=== PATIENT | female | born 1990 | race Caucasian/White ===

== ENCOUNTER 2018-03-03 19:20 | Inpatient (IN) ==
[2018-03-03 21:17] LABS: Basophils % 0.3 %; Eosinophils # 0.1 K/mcL (0.0-0.6); Eosinophils % 0.7 %; Lymphocytes # 1.7 K/mcL (0.6-4.6); Lymphocytes % 14.3 %; Mean Corpuscular HGB Conc 36.4 g/dL (31.6-35.5); Mean Corpuscular Hemoglobin 31.5 pg (28.0-33.3); Mean Corpuscular Volume 86.6 fL (83.0-100.0); Mean Platelet Volume 10.9 fL (9.4-12.4); Monocytes # 0.6 K/mcL (0.0-1.3); Monocytes % 4.7 %; Neutrophils # 9.3 K/mcL (1.6-8.9); Platelet Count 205 K/mcL (140-400); Red Blood Count 3.81 M/mcL (3.82-4.97)
[2018-03-03 21:34] LABS: Acetaminophen < 10 mcg/mL (10-20); BUN/Creatinine Ratio 27 (6-26); Blood Urea Nitrogen 18 mg/dL (6-20); Carbon Dioxide 21 mEq/L (23-29); Chloride 105 mEq/L (98-107); Ethanol < 10 mg/dL (Less than 10); Glucose 83 mg/dL (70-105); Osmolality,Calculated 287 (280-300); Potassium 3.4 mEq/L (3.5-5.1); Salicylate < 2.5 mg/dL (15.0-30.0); Sodium 138 mEq/L (136-145); eGFR For Non-African Americans > 60 (> 60)
[2018-03-03 21:44] LABS: Bilirubin,Urine Small (Negative); Blood,Urine Small (Negative); Clarity,Urine Clear (Clear); Color,Urine Yellow (Yellow); Glucose,Urine (UA) Normal (Normal); Ketones,Urine >=160 mg/dL (Negative); Leukocyte Esterase,Urine Negative (Negative); Nitrite,Urine Negative (Negative); Protein,Urine 100 mg/dL (Neg-Trace); Specific Gravity,Urine 1.024 (1.010-1.025); Urobilinogen,Urine Normal (Normal)
[2018-03-03 21:46] LABS: Bacteria,Urine None Seen per hpf (None-Few); Hyaline Casts,Urine None Seen per lpf (None-Few); RBC,Urine 0-3 per hpf (0-3); Squamous Epithelial Cell,Urine Many per lpf (None-Few)
[2018-03-03 22:02] LABS: Amphetamine Screen,Urine Negative ng/mL (Cutoff=1000); Barbiturate Screen,Urine Negative ng/mL (Cutoff=200); Benzodiazepines Screen,Urine Positive ng/mL (Cutoff=200); Cannabinoid Screen,Urine Negative ng/mL (Cutoff = 50); Cocaine Screen,Urine Negative ng/mL (Cutoff= 300); Opiate Screen,Urine Negative ng/mL (Cutoff=300); Phencyclidine Screen,Urine Negative ng/mL (Cutoff=25)
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
[2018-03-04] MEDS ORDERED: Ondansetron 4 MG/2 ML VIAL IVP ONE (00:02)
[2018-03-04] MEDS: Ringers Solution, Lactated 1,000 ML IVC SCH ×2 (00:35→20:42)
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
[2018-03-04] MEDS: Potassium Chloride Elixir 20 MEQ/15 ML UDC PO ONE ×2 (03:07→03:29)
[2018-03-04] MEDS: *HR* Heparin 5,000 UNIT/ML VIAL SQ SCH ×3 (06:02→20:45)
[2018-03-04 07:37] LABS: Alanine Aminotransferase 16 Units/L (7-52); Albumin/Globulin Ratio 1.4 (1.1-2.2); Alkaline Phosphatase 68 Units/L (34-104); Aspartate Amino Transferase 21 Units/L (13-39); BUN/Creatinine Ratio 22 (6-26); Bilirubin,Direct 0.1 mg/dL (0.0-0.2); Bilirubin,Indirect 0.3 mg/dL (0.0-1.2); Bilirubin,Total 0.4 mg/dL (0.3-1.0); Blood Urea Nitrogen 15 mg/dL (6-20); Calcium 9.3 mg/dL (8.6-10.3); Carbon Dioxide 25 mEq/L (23-29); Chloride 106 mEq/L (98-107); Globulin 2.9 g/dL (2.4-3.5); Glucose 162 mg/dL (70-105); Osmolality,Calculated 294 (280-300); Sodium 140 mEq/L (136-145); Total Protein 6.9 g/dL (6.4-8.9); eGFR For Non-African Americans > 60 (> 60)
[2018-03-04 07:49] LABS: Thyroid Stimulating Hormone 0.529 mcIU/mL (0.340-5.600)
[2018-03-04 07:52] LABS: Basophils # 0.1 K/mcL (0.0-0.2); Basophils % 0.5 %; Eosinophils # 0.1 K/mcL (0.0-0.6); Eosinophils % 1.1 %; Hematocrit 35.3 % (35.3-44.9); Hemoglobin 12.7 g/dL (11.5-15.4); Immature Granulocytes % 1.9 % (0-4); Lymphocytes # 1.8 K/mcL (0.6-4.6); Lymphocytes % 14.4 %; Mean Corpuscular Hemoglobin 31.4 pg (28.0-33.3); Mean Corpuscular Volume 87.2 fL (83.0-100.0); Mean Platelet Volume 10.5 fL (9.4-12.4); Monocytes # 0.6 K/mcL (0.0-1.3); Monocytes % 5.2 %; Neutrophils # 9.4 K/mcL (1.6-8.9); Platelet Count 250 K/mcL (140-400); Red Blood Count 4.05 M/mcL (3.82-4.97); Red Cell Distribution Width 11.9 % (11.5-14.5); Segmented Neutrophils % 76.9 %
[2018-03-04 08:45] LABS: Hepatitis B Surface Antigen Nonreactive (Nonreactive)
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
[2018-03-04] MEDS: Ondansetron 4 MG/2 ML VIAL IVP PRN ×2 (11:37→18:56)
[2018-03-04] MEDS ORDERED: *HR* LORazepam 2 MG/ML VIAL IVP ONE (15:19)
[2018-03-04] MEDS ORDERED: Ammonia Inhalant AMPUL IH ONE (16:09)
--- NOTE | 2018-03-04 16:13 | Event Note ---
Date of Encounter: 03/04/18 Time of Encounter: 16:01 Patient was seen and examined at bedside currently patient is nonverbal she does follow with her eyes and does follow simple commands. I did review documents sent from [facility] during admission-according to records it appears the patient was experiencing seizure-like activity and was intubated and brought to [facility] there was some concern seizure may have been provoked either by hypernatremia sodium level was 155 or possibly from drug-induced. It appears blood cultures were drawn and attempted LP failed HIV was negative she [facility] According to records Blood cultures were were drawn and are negative to date- according to discharge summary HIV was negative urine culture was negative sputum /urine culture negative urinary antigens and MRSA negative she did receive a dose of Vanco and cefepime discontinued. Patient was extubated there were several attempts to obtain an MRI however patient was noncompliant and combative according to record acute encephalopathy suspected possibly related to behavior and substance abuse. Psychiatry has been consulted and awaiting recommendations
--- NOTE | 2018-03-04 16:42 | Consult Note ---
Date of Encounter: 03/04/18 Time of Encounter: 16:00 Assessment & Recommendation (1) Catatonic disorder due to known physiological condition Current visit: Yes Status: Acute History of Present Illness Patient: new to practice Requesting Physician: Kevyn Chan MD Reason for consult: catatonia History of present illness: Ms. Landaverde is a 27 year old female . The patient offers no chief complaint. She stares ahead does not respond. History of present illness. The patient presented last night and was felt to be in an agitated state. A variety of abnormalities of behavior were observed. The patient had benzodiazepines in the urine but no other medicines were detected. There is a variety of concern about patient's mental status neurology is been evaluated. At the time the patient was evaluated she sat in a Thursday and posterior she was staring straight ahead she was mute and relatively immobile. The patient had some elicited catatonic signs. These include catalepsy, and locke Amado catatonia rating scale 26. A diagnosis of catatonia was made and the patient was given lorazepam 1 mg IV. After one hour the patient was reassessed and the locke Amado catatonia scale was at 15 or less. While the score above 10 indicates catatonia some of these were the catatonic signs found on the previous exam. The patient began speaking spontaneously and may been able to take food. Therefore we can consider this positive response. The etiology of the catatonia remains unclear and a neurology consult may be helpful to guide treatment decisions. Nonetheless favorable catatonia response could be helpful in delineating the etiology of the catatonia. CC: Kevyn Chan MD Past Med Surg Social Fam HX - Past Medical History Source: unable to obtain Medical history: kidney stones, seizures, other - Past Psychiatric History Psychiatric history: Reports: other Family psychiatric history: Unknown Family History of Suicide: Unknown - Past Surgical History Surgical History: no surgical history - Social History Smoking Status: Current every day smoker Alcohol use: rarely Drug use: opiates, IV Drug Use Medications & Allergies No Known Home Drugs 03/04/18 [History] 3 Allergy/AdvReac Type Severity Reaction Status Date / Time No Known Allergies Allergy Verified 03/03/18 19:28 Review of Systems Psychiatric: Reports: other Psychiatry Exam - Constitutional Vitals: Temp Pulse Resp BP Pulse Ox 98.7 F 83 15 119/78 99 03/04/18 08:51 03/04/18 08:51 03/04/18 08:51 03/04/18 08:51 03/04/18 08:51 General appearance: age & developmentally appropriate, well-groomed - Musculoskeletal Gait: other Station: posturing Strength & Tone: mild weakness - Psychiatric Patient Orientation: Yes Person, Yes Time, Yes Place Level of alertness: Alert Behavior: calm Psychomotor activity: Abnormal movements Eye Contact: Maintains Eye Contact Mood Description: Other Affect description: other Speech Volume: No speech Speech pattern: non-verbal Language & Vocabulary: aphasia Thought Process: Disorganized Thought Content: Yes Poverty of Content Perceptual Disturbances: Yes Reacting to internal stimuli Attention Span Ability: Unable to Focus Patient Reliability: Not Reliable Historian Judgment: Poor Insight: None Results - Labs Labs: Laboratory Last Values WBC 12.2 K/mcL (4.3-11.1) H 03/04/18 04:00 RBC 4.05 M/mcL (3.82-4.97) 03/04/18 04:00 Hgb 12.7 g/dL (11.5-15.4) 03/04/18 04:00 Hct 35.3 % (35.3-44.9) 03/04/18 04:00 MCV 87.2 fL (83.0-100.0) 03/04/18 04:00 MCH 31.4 pg (28.0-33.3) 03/04/18 04:00 MCHC 36.0 g/dL (31.6-35.5) H 03/04/18 04:00 RDW 11.9 % (11.5-14.5) 03/04/18 04:00 Plt Count 250 K/mcL (140-400) 03/04/18 04:00 MPV 10.5 fL (9.4-12.4) 03/04/18 04:00 Immature Gran % 1.9 % (0-4) 03/04/18 04:00 Seg Neutrophils % 76.9 % 03/04/18 04:00 Lymphocytes % 14.4 % 03/04/18 04:00 Monocytes % 5.2 % 03/04/18 04:00 Eosinophils % 1.1 % 03/04/18 04:00 Basophils % 0.5 % 03/04/18 04:00 Neutrophils # 9.4 K/mcL (1.6-8.9) H 03/04/18 04:00 Lymphocytes # 1.8 K/mcL (0.6-4.6) 03/04/18 04:00 Monocytes # 0.6 K/mcL (0.0-1.3) 03/04/18 04:00 Eosinophils # 0.1 K/mcL (0.0-0.6) 03/04/18 04:00 Basophils # 0.1 K/mcL (0.0-0.2) 03/04/18 04:00 Sodium 140 mEq/L (136-145) 03/04/18 06:50 Potassium 3.0 mEq/L (3.5-5.1) L 03/04/18 06:50 Chloride 106 mEq/L (98-107) 03/04/18 06:50 Carbon Dioxide 25 mEq/L (23-29) 03/04/18 06:50 BUN 15 mg/dL (6-20) 03/04/18 06:50 Creatinine 0.69 mg/dL (0.60-1.20) 03/04/18 06:50 Est GFR ( Amer) > 60 (> 60) 03/04/18 06:50 Est GFR (Non-Af Amer) > 60 (> 60) 03/04/18 06:50 BUN/Creatinine Ratio 22 (6-26) 03/04/18 06:50 Glucose 162 mg/dL (70-105) H 03/04/18 06:50 Calculated Osmolality 294 (280-300) 03/04/18 06:50 Calcium 9.3 mg/dL (8.6-10.3) 03/04/18 06:50 Total Bilirubin 0.4 mg/dL (0.3-1.0) 03/04/18 06:50 Direct Bilirubin 0.1 mg/dL (0.0-0.2) 03/04/18 06:50 Indirect Bilirubin 0.3 mg/dL (0.0-1.2) 03/04/18 06:50 AST 21 Units/L (13-39) 03/04/18 06:50 ALT 16 Units/L (7-52) 03/04/18 06:50 Alkaline Phosphatase 68 Units/L (34-104) 03/04/18 06:50 Serum Total Protein 6.9 g/dL (6.4-8.9) 03/04/18 06:50 Albumin 4.0 g/dL (3.5-5.7) 03/04/18 06:50 Globulin 2.9 g/dL (2.4-3.5) 03/04/18 06:50 Albumin/Globulin Ratio 1.4 (1.1-2.2) 03/04/18 06:50 TSH 0.529 mcIU/mL (0.340-5.600) 03/04/18 06:50 Urine Color Yellow (Yellow) 03/03/18 21:30 Urine Clarity Clear (Clear) 03/03/18 21:30 Urine pH 6.0 pH Units (5.0-8.0) 03/03/18 21:30 Ur Specific [place] 1.024 (1.010-1.025) 03/03/18 21:30 Urine Protein 100 mg/dL (Neg-Trace) H 03/03/18 21:30 Urine Glucose (UA) Normal mg/dL (Normal) 03/03/18 21:30 Urine Ketones >=160 mg/dL (Negative) H 03/03/18 21:30 Urine Blood Small (Negative) H 03/03/18 21:30 Urine Nitrite Negative (Negative) 03/03/18 21:30 Urine Bilirubin Small (Negative) H 03/03/18 21:30 Urine Urobilinogen Normal mg/dL (Normal) 03/03/18 21:30 Ur Leukocyte Esterase Negative (Negative) 03/03/18 21:30 Urine Microscopic RBC 0-3 per hpf (0-3) 03/03/18 21:30 Urine Microscopic WBC 3-5 per hpf (0-3) H 03/03/18 21:30 Ur Squamous Epith Cells Many per lpf (None-Few) H 03/03/18 21:30 Urine Bacteria None Seen per hpf (None-Few) 03/03/18 21:30 Hyaline Casts None Seen per lpf (None-Few) 03/03/18 21:30 Salicylates < 2.5 mg/dL (15.0-30.0) L 03/03/18 20:59 Urine Opiates Screen Negative ng/mL (Oppcsq=375) 03/03/18 21:30 Acetaminophen < 10 mcg/mL (10-20) L 03/03/18 20:59 Ur Barbiturates Screen Negative ng/mL (Cexutb=177) 03/03/18 21:30 Ur Phencyclidine Scrn Negative ng/mL (Cutoff=25) 03/03/18 21:30 Ur Amphetamines Screen Negative ng/mL (Qvgqbm=4952) 03/03/18 21:30 U Benzodiazepines Scrn Positive ng/mL (Uxbglq=576) H 03/03/18 21:30 Urine Cocaine Screen Negative ng/mL (Cutoff= 300) 03/03/18 21:30 U Marijuana (THC) Screen Negative ng/mL (Cutoff = 50) 03/03/18 21:30 Ur Drug Screen Interp See Below 03/03/18 21:30 Ethyl Alcohol < 10 mg/dL (Less than 10) 03/03/18 20:59 T.pallidum Ab Interpret Negative (NEGATIVE) 03/04/18 06:50 Hep Bs Antigen Nonreactive (Nonreactive) 03/04/18 04:00 Consult Discharge Plan - Plan Referrals: NONE,PCP [Primary Care Provider] -
[2018-03-04] MEDS: *HR* LORazepam 2 MG/ML VIAL IVP SCH (23:12)
[2018-03-05] MEDS: Ondansetron 4 MG/2 ML VIAL IVP PRN ×2 (02:47→08:18)
[2018-03-05] MEDS: Acetaminophen 325 MG TABLET PO PRN (02:53)
[2018-03-05 03:29] LABS: Hepatitis A Antibody IgM Nonreactive (Nonreactive); Hepatitis B Core IgM Nonreactive (Nonreactive)
[2018-03-05 03:51] LABS: Hepatitis C Virus Antibody Reactive (Nonreactive)
[2018-03-05] MEDS: *HR* Heparin 5,000 UNIT/ML VIAL SQ SCH ×3 (05:36→21:37)
[2018-03-05 05:48] LABS: Basophils # 0.1 K/mcL (0.0-0.2); Basophils % 0.6 %; Eosinophils # 0.1 K/mcL (0.0-0.6); Eosinophils % 0.8 %; Hematocrit 32.2 % (35.3-44.9); Hemoglobin 11.6 g/dL (11.5-15.4); Immature Granulocytes % 4.8 % (0-4); Lymphocytes # 2.1 K/mcL (0.6-4.6); Lymphocytes % 20.4 %; Mean Corpuscular Hemoglobin 31.4 pg (28.0-33.3); Mean Platelet Volume 10.4 fL (9.4-12.4); Monocytes # 0.6 K/mcL (0.0-1.3); Monocytes % 5.9 %; Neutrophils # 6.9 K/mcL (1.6-8.9); Platelet Count 247 K/mcL (140-400); Red Cell Distribution Width 12.1 % (11.5-14.5); Segmented Neutrophils % 67.5 %
[2018-03-05 05:52] LABS: BUN/Creatinine Ratio 12 (6-26); Blood Urea Nitrogen 7 mg/dL (6-20); Calcium 9.1 mg/dL (8.6-10.3); Carbon Dioxide 25 mEq/L (23-29); Chloride 107 mEq/L (98-107); Glucose 131 mg/dL (70-105); Osmolality,Calculated 290 (280-300); Sodium 140 mEq/L (136-145); eGFR For Non-African Americans > 60 (> 60)
[2018-03-05] MEDS: *HR* LORazepam 2 MG/ML VIAL IVP SCH ×2 (08:15→17:13)
[2018-03-05] MEDS ORDERED: *HR* LORazepam 1 MG TABLET PO PRN (11:21)
--- NOTE | 2018-03-05 11:48 | Consult Note ---
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 Landaverde is a 27 year old female If complaints I was using Xanax but I have not used it in 3 days. History of present illness. The ration was seen yesterday and had significant catatonia. On today's examination she has Andrés and posturing, decreased levels speech, decreased eating and drinking, slight over compliance minimal negativism and catalepsy. The patient is able to provide us with more history. She had used heroin and ended used Xanax 2 mg 3 times a day. Several days ago she stopped using and may have developed a catatonic state. The patient can recall us visiting but is unclear on exactly the time she is slightly disoriented to the date and only aware of person place and situation. She is agreeable to coming to the psychiatric unit. The patient has a history of opiate use and has tried to clean up in the past. She has gone to [facility] twice she has not been on naltrexone or Suboxone by her report. The patient responded favorably to lorazepam at midnight and at 8:00 in the morning. She was up showered but still requires a sitter. She will be encouraged to eat and drink. She will also be started on lorazepam 1 mg by mouth 3 times a day. I am not sure if this is enough since 2 mg of Xanax is equal to 4 mg of Ativan. Thus higher doses of benzodiazepines may be necessary The patient reports that she is hearing the voice of God. The voice of God tells her to stop using opiates at times she gets ideas of reference she denies delusions of passive bitty thought insertion thought withdrawal or thought broadcasting. She rated her anxiety as a 9 out of 10. While she did not look objectively as if she was having anxiety she reported high internal perceptions of anxiety CC: Kevyn Chan MD Past Med Surg Social Fam HX - Past Medical History Source: patient Medical history: kidney stones, seizures, other - Past Psychiatric History Psychiatric history: Reports: other Family psychiatric history: Unknown Family History of Suicide: Unknown - Past Surgical History Surgical History: no surgical history - Social History Smoking Status: Current every day smoker Alcohol use: rarely Drug use: opiates, IV Drug Use Occupational status: other Current living situation: Other Activity Level: Independent ambulation Recent Out of Country Travel Within the Last 8 Weeks: No Exposure or Possible Exposure to Illness During Travel: No Medications & Allergies No Known Home Drugs 03/04/18 [History] 3 Allergy/AdvReac Type Severity Reaction Status Date / Time No Known Allergies Allergy Verified 03/03/18 19:28 Review of Systems Psychiatric: Reports: anxiety, auditory hallucinations, visual hallucinations, other Psychiatry Exam - Constitutional Vitals: Temp Pulse Resp BP Pulse Ox 98.4 F 78 16 125/82 96 03/05/18 07:16 03/05/18 07:16 03/05/18 07:16 03/05/18 07:16 03/05/18 07:16 General appearance: age & developmentally appropriate, well-groomed, thin - Musculoskeletal Station: posturing Strength & Tone: normal for patient - Psychiatric Patient Orientation: Yes Person, Yes Time, Yes Place, Yes Other Level of alertness: Follows commands Behavior: withdrawn Psychomotor activity: Catatonic Eye Contact: Infrequent Blinking Mood Description: Anxious Affect description: blunted Speech Volume: Soft/Quiet Speech pattern: impoverished, monotone Language & Vocabulary: limited Thought Process: Logical, Evasive, [place] Thought Content: Yes Ideas of reference, Yes Presybeterian delusion Perceptual Disturbances: Yes Auditory hallucinations Attention Span Ability: Unable to Sustain Attention Memory Description: Immediate Impaired Patient Reliability: Questionable Historian Fund of knowledge: Yes average Intelligence Estimate: Average Judgment: Limited Insight: Minimal Results - Labs Labs: Laboratory Last Values WBC 10.2 K/mcL (4.3-11.1) 03/05/18 05:16 RBC 3.70 M/mcL (3.82-4.97) L 03/05/18 05:16 Hgb 11.6 g/dL (11.5-15.4) 03/05/18 05:16 Hct 32.2 % (35.3-44.9) L 03/05/18 05:16 MCV 87.0 fL (83.0-100.0) 03/05/18 05:16 MCH 31.4 pg (28.0-33.3) 03/05/18 05:16 MCHC 36.0 g/dL (31.6-35.5) H 03/05/18 05:16 RDW 12.1 % (11.5-14.5) 03/05/18 05:16 Plt Count 247 K/mcL (140-400) 03/05/18 05:16 MPV 10.4 fL (9.4-12.4) 03/05/18 05:16 Immature Gran % 4.8 % (0-4) H 03/05/18 05:16 Seg Neutrophils % 67.5 % 03/05/18 05:16 Lymphocytes % 20.4 % 03/05/18 05:16 Monocytes % 5.9 % 03/05/18 05:16 Eosinophils % 0.8 % 03/05/18 05:16 Basophils % 0.6 % 03/05/18 05:16 Neutrophils # 6.9 K/mcL (1.6-8.9) 03/05/18 05:16 Lymphocytes # 2.1 K/mcL (0.6-4.6) 03/05/18 05:16 Monocytes # 0.6 K/mcL (0.0-1.3) 03/05/18 05:16 Eosinophils # 0.1 K/mcL (0.0-0.6) 03/05/18 05:16 Basophils # 0.1 K/mcL (0.0-0.2) 03/05/18 05:16 Sodium 140 mEq/L (136-145) 03/05/18 05:16 Potassium 3.0 mEq/L (3.5-5.1) L 03/05/18 05:16 Chloride 107 mEq/L (98-107) 03/05/18 05:16 Carbon Dioxide 25 mEq/L (23-29) 03/05/18 05:16 BUN 7 mg/dL (6-20) 03/05/18 05:16 Creatinine 0.58 mg/dL (0.60-1.20) L 03/05/18 05:16 Est GFR ( Amer) > 60 (> 60) 03/05/18 05:16 Est GFR (Non-Af Amer) > 60 (> 60) 03/05/18 05:16 BUN/Creatinine Ratio 12 (6-26) 03/05/18 05:16 Glucose 131 mg/dL (70-105) H 03/05/18 05:16 Calculated Osmolality 290 (280-300) 03/05/18 05:16 Calcium 9.1 mg/dL (8.6-10.3) 03/05/18 05:16 Total Bilirubin 0.4 mg/dL (0.3-1.0) 03/04/18 06:50 Direct Bilirubin 0.1 mg/dL (0.0-0.2) 03/04/18 06:50 Indirect Bilirubin 0.3 mg/dL (0.0-1.2) 03/04/18 06:50 AST 21 Units/L (13-39) 03/04/18 06:50 ALT 16 Units/L (7-52) 03/04/18 06:50 Alkaline Phosphatase 68 Units/L (34-104) 03/04/18 06:50 Serum Total Protein 6.9 g/dL (6.4-8.9) 03/04/18 06:50 Albumin 4.0 g/dL (3.5-5.7) 03/04/18 06:50 Globulin 2.9 g/dL (2.4-3.5) 03/04/18 06:50 Albumin/Globulin Ratio 1.4 (1.1-2.2) 03/04/18 06:50 TSH 0.529 mcIU/mL (0.340-5.600) 03/04/18 06:50 Urine Color Yellow (Yellow) 03/03/18 21:30 Urine Clarity Clear (Clear) 03/03/18 21:30 Urine pH 6.0 pH Units (5.0-8.0) 03/03/18 21:30 Ur Specific [place] 1.024 (1.010-1.025) 03/03/18 21:30 Urine Protein 100 mg/dL (Neg-Trace) H 03/03/18 21:30 Urine Glucose (UA) Normal mg/dL (Normal) 03/03/18 21:30 Urine Ketones >=160 mg/dL (Negative) H 09/12/18 21:30 Urine Blood Small (Negative) H 03/03/18 21:30 Urine Nitrite Negative (Negative) 03/03/18 21:30 Urine Bilirubin Small (Negative) H 03/03/18 21:30 Urine Urobilinogen Normal mg/dL (Normal) 03/03/18 21:30 Ur Leukocyte Esterase Negative (Negative) 03/03/18 21:30 Urine Microscopic RBC 0-3 per hpf (0-3) 03/03/18 21:30 Urine Microscopic WBC 3-5 per hpf (0-3) H 03/03/18 21:30 Ur Squamous Epith Cells Many per lpf (None-Few) H 03/03/18 21:30 Urine Bacteria None Seen per hpf (None-Few) 03/03/18 21:30 Hyaline Casts None Seen per lpf (None-Few) 03/03/18 21:30 Salicylates < 2.5 mg/dL (15.0-30.0) L 03/03/18 20:59 Urine Opiates Screen Negative ng/mL (Iobemy=369) 03/03/18 21:30 Acetaminophen < 10 mcg/mL (10-20) L 03/03/18 20:59 Ur Barbiturates Screen Negative ng/mL (Ickpmz=182) 03/03/18 21:30 Ur Phencyclidine Scrn Negative ng/mL (Cutoff=25) 03/03/18 21:30 Ur Amphetamines Screen Negative ng/mL (Xjrupc=0444) 03/03/18 21:30 U Benzodiazepines Scrn Positive ng/mL (Tkktbe=388) H 03/03/18 21:30 Urine Cocaine Screen Negative ng/mL (Cutoff= 300) 03/03/18 21:30 U Marijuana (THC) Screen Negative ng/mL (Cutoff = 50) 03/03/18 21:30 Ur Drug Screen Interp See Below 03/03/18 21:30 Ethyl Alcohol < 10 mg/dL (Less than 10) 03/03/18 20:59 T.pallidum Ab Interpret Negative (NEGATIVE) 03/04/18 06:50 Hepatitis A IgM Ab Nonreactive (Nonreactive) 03/04/18 04:00 Hep Bs Antigen Nonreactive (Nonreactive) 03/04/18 04:00 Hep B Core IgM Ab Nonreactive (Nonreactive) 03/04/18 04:00 Hepatitis C Ab Screen Reactive (Nonreactive) H 03/04/18 04:00 Consult Discharge Plan - Plan Referrals: NONE,PCP [Primary Care Provider] -
[2018-03-05] MEDS ORDERED: Potassium Chloride 40 MEQ, Lidocaine 1% 2 ML in D5% in Water 500 ML IVPB ONE (14:50)
[2018-03-05] MEDS: Ringers Solution, Lactated 1,000 ML IVC SCH (17:13)
--- NOTE | 2018-03-05 19:02 | Internal Med Progress Note ---
Hospitalist Progress Note - Encounter Date of Encounter: 03/05/18 Time of Encounter: 11:00 - Subjective Interval History: Patient was seen and examined at bedside continues to be nonverbal however she is cooperative at times shakes her head yes or no. Sitter states that patient has had poor oral intake today - Exam Vitals: Temp Pulse Resp BP Pulse Ox 98.8 F 88 19 111/73 98 03/05/18 18:18 03/05/18 18:18 03/05/18 18:18 03/05/18 18:18 03/05/18 18:18 Exam: Vitals: Reviewed General: Well-developed, NAD, sitting up in bed. Skin: , bruised upper extremities. HEENT: Moist mucous membranes. No conjunctivae pallor. Neck: No lymphadenopathy. No JVD. No carotid bruits. No palpable thyroid. Chest: Normal thoracic expansion. Normal breath sounds. Clear to auscultation. Heart: Normal S1 & S2; rhythmic. No rubs or murmurs. Abdomen: Non-distended, soft and grimacing elicited on deep epigastric palpation. No peritoneal reaction. Liver is normal in size. Spleen is not palpable. Extremities: No clubbing, cyanosis or edema. No calf tenderness. Normal distal pulses. Neurological: Awake, alert. No focal deficits apparent. Moves all extremities spontaneously. Bilateral handgrip strength intact. Psych: Flat affect. 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 She nods appropriately when asked questions however and follows commands although she has a cautious look on her face when asked to do something. Her UDS right now does not show illicit substances and there are no clinical or hematologic signs of infection. No focal deficits apparent. She is not exhibiting signs of anoxic brain injury which was the original concern per family. c -She may benefit from an MRI to ensure there are no focal findings seen however undergoing this procedure may require sedation if she does not stay still for this. -Will consult neurology and psychiatry. -Will continue 1 to 1 and observe her overnight. She was pink-slipped in the ER. 03/04 neurology and psychiatry both have been consulted-neurologically there are no focal deficits she is able to follow simple commands at times she is able to speak suspect catatonia secondary to benzodiazepine withdrawal-neuro has signed off Psychiatry has increased patient's Ativan both IV and by mouth. In hopes to improve her catatonia. Once she is able to take in oral medications as well as able to maintain hydration and eat she can be discharged to psychiatry for further treatment either as a voluntary patient or involuntary (2) Hypokalemia Current Visit: Yes Status: Acute Assessment and Plan: Potassium was 3 this a.m. we will replace with IV K rider Magnesium stable Continue to monitor and replace (3) DVT prophylaxis Current Visit: Yes Status: Acute Assessment and Plan: SubQ heparin ordered. (4) Substance use disorder Current Visit: Yes Status: Chronic Assessment and Plan: Historically reported and reviewed within records Review of [place] records does show positive hepatitis C Currently tox screen shows benzodiazepines which are currently treating patient We will continue with benzodiazepines for catatonia IV fluids as needed monitor electrolytes - Time Spent with Patient Total time spent is greater than 50% in coordination of care (as documented) at patient's floor/unit and/or counseling patient: Internal Medicine: Result - Labs CBC & Chem 7: 03/05/18 05:16 03/05/18 05:16 Labs: Short CBC 03/05/18 Range/Units 05:16 WBC 10.2 (4.3-11.1) K/mcL Hgb 11.6 (11.5-15.4) g/dL Hct 32.2 L (35.3-44.9) % Plt Count 247 (140-400) K/mcL Neutrophils # 6.9 (1.6-8.9) K/mcL BMP 03/05/18 05:16 Sodium 140 Potassium 3.0 L Chloride 107 Carbon Dioxide 25 BUN 7 Creatinine 0.58 L Glucose 131 H Calcium 9.1 Consult Discharge Plan - Plan Referrals: NONE,PCP [Primary Care Provider] -
[2018-03-05] MEDS ORDERED: *HR* LORazepam 1 MG TABLET PO SCH (21:00)
[2018-03-05] MEDS ORDERED: *HR* Promethazine 25 MG/ML VIAL IVP PRN (23:19)
[2018-03-06] MEDS: *HR* LORazepam 2 MG/ML VIAL IVP SCH ×2 (04:21→10:41)
[2018-03-06 05:53] LABS: BUN/Creatinine Ratio 9 (6-26); Blood Urea Nitrogen 5 mg/dL (6-20); Calcium 9.1 mg/dL (8.6-10.3); Carbon Dioxide 19 mEq/L (23-29); Chloride 110 mEq/L (98-107); Glucose 103 mg/dL (70-105); Osmolality,Calculated 288 (280-300); Potassium 3.1 mEq/L (3.5-5.1); Sodium 140 mEq/L (136-145); eGFR For Non-African Americans > 60 (> 60)
[2018-03-06] MEDS: *HR* Heparin 5,000 UNIT/ML VIAL SQ SCH ×3 (06:16→21:41)
[2018-03-06 07:39] LABS: Hematocrit 34.3 % (35.3-44.9); Hemoglobin 12.2 g/dL (11.5-15.4); Mean Corpuscular HGB Conc 35.6 g/dL (31.6-35.5); Mean Corpuscular Hemoglobin 31.3 pg (28.0-33.3); Platelet Count 203 K/mcL (140-400); Red Cell Distribution Width 12.5 % (11.5-14.5)
[2018-03-06 07:50] LABS: Mean Corpuscular Volume 87.9 fL (83.0-100.0)
[2018-03-06] MEDS ORDERED: Potassium Chloride 40 MEQ, Lidocaine 1% 2 ML in D5% in Water 500 ML IVPB ONE (08:02)
[2018-03-06 09:47] LABS: Lymphocytes # 1.8 K/mcL (0.6-4.6); Monocytes # 0.5 K/mcL (0.0-1.3); Neutrophils # 10.2 K/mcL (1.6-8.9); Platelet Estimate Normal (Normal)
--- NOTE | 2018-03-06 11:40 | Internal Med Progress Note ---
Hospitalist Progress Note - Encounter Date of Encounter: 03/06/18 Time of Encounter: 11:40 - Subjective Interval History: Patient was seen and examined at bedside continues to be nonverbal, however appears to be more interactive shaking her head yes and no. Following simple directions ambulating in the room. According nursing staff patient attempted to snort Ativan last night. At this time patient has lost IV access unable to resume IV Ativan we will continue with oral Ativan however we will crush and place in pudding. - Exam Vitals: Temp Pulse Resp BP Pulse Ox 99.2 F 94 14 110/71 97 03/05/18 22:07 03/05/18 22:07 03/05/18 22:07 03/05/18 22:07 03/05/18 22:07 Exam: Vitals: Reviewed General: Well-developed, NAD, sitting up in bed. Skin: , bruised upper extremities. HEENT: Moist mucous membranes. No conjunctivae pallor. Neck: No lymphadenopathy. No JVD. No carotid bruits. No palpable thyroid. Chest: Normal thoracic expansion. Normal breath sounds. Clear to auscultation. Heart: Normal S1 & S2; rhythmic. No rubs or murmurs. Abdomen: Non-distended, soft and grimacing elicited on deep epigastric palpation. No peritoneal reaction. Liver is normal in size. Spleen is not palpable. Extremities: No clubbing, cyanosis or edema. No calf tenderness. Normal distal pulses. Neurological: Awake, alert. No focal deficits apparent. Moves all extremities spontaneously. Bilateral handgrip strength intact. Psych: Flat affect. 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 She nods appropriately when asked questions however and follows commands although she has a cautious look on her face when asked to do something. Her UDS right now does not show illicit substances and there are no clinical or hematologic signs of infection. No focal deficits apparent. She is not exhibiting signs of anoxic brain injury which was the original concern per family. c -She may benefit from an MRI to ensure there are no focal findings seen however undergoing this procedure may require sedation if she does not stay still for this. -Will consult neurology and psychiatry. -Will continue 1 to 1 and observe her overnight. She was pink-slipped in the ER. 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 In hopes to improve her catatonia. Once she is able to take in oral medications as well as able to maintain hydration and eat she can be discharged to psychiatry for further treatment either as a voluntary patient or involuntary 03/06-patient appears more interactive ambulating in the room following simple directions. Continues to be nonverbal shaking head yes or no. We will continue with Ativan orally patient has lost IV access and we have not been able to reestablish (2) Hypokalemia Current Visit: Yes Status: Acute Assessment and Plan: Potassium was 3 this a.m. we will replace with IV K rider Magnesium stable Continue to monitor and replace 03/06 potassium is 3 today patient does not have IV access we will give oral replacement and recheck (3) DVT prophylaxis Current Visit: Yes Status: Acute Assessment and Plan: SubQ heparin ordered. (4) Substance use disorder Current Visit: Yes Status: Chronic Assessment and Plan: Historically reported and reviewed within records Review of [place] records does show positive hepatitis C tox screen shows benzodiazepines which are currently treating patient We will continue with benzodiazepines for catatonia monitor electrolytes - Time Spent with Patient Total time spent is greater than 50% in coordination of care (as documented) at patient's floor/unit and/or counseling patient: Internal Medicine: Result - Labs CBC & Chem 7: 03/06/18 07:19 03/06/18 04:58 Labs: Short CBC 03/06/18 Range/Units 07:19 WBC 12.7 H (4.3-11.1) K/mcL Hgb 12.2 (11.5-15.4) g/dL Hct 34.3 L (35.3-44.9) % Plt Count 203 (140-400) K/mcL Neutrophils # 10.2 H (1.6-8.9) K/mcL BMP 03/06/18 04:58 Sodium 140 Potassium 3.1 L Chloride 110 H Carbon Dioxide 19 L BUN 5 L Creatinine 0.53 L Glucose 103 Calcium 9.1 Consult Discharge Plan - Plan Referrals: NONE,PCP [Primary Care Provider] -
[2018-03-06] MEDS: Ringers Solution, Lactated 1,000 ML IVC SCH (11:49)
[2018-03-06] MEDS: *HR* LORazepam 1 MG TABLET PO SCH ×3 (12:04→23:07)
[2018-03-06] MEDS ORDERED: Ondansetron ODT 4 MG TAB.RAPDIS SL PRN (12:06)
[2018-03-06] MEDS ORDERED: Potassium Chloride Elixir 20 MEQ/15 ML UDC PO ONE (12:27)
--- NOTE | 2018-03-06 14:28 | Psychiatry Progress Note ---
Date of Encounter: 03/06/18 Time of Encounter: 14:00 Subjective Interval history: Psychiatric consultation: Patient is seen for follow-up on psychiatric consultation. Review of the records and discussed was nursing staff. Patient is more alert, occasionally verbal, sedated. Oral intake is improving but continued to be lethargic. Patient admits to using heroin. Otherwise her answers are nonverbal. Review of Systems Psychiatric: Reports: anxiety, auditory hallucinations, visual hallucinations, other Results - Vital Signs Vital Signs: Temp Pulse Resp BP Pulse Ox 99.2 F 94 14 110/71 97 03/05/18 22:07 03/05/18 22:07 03/05/18 22:07 03/05/18 22:07 03/05/18 22:07 - Labs Labs: Laboratory Results - last 24 hr 03/05/18 03/06/18 03/06/18 16:12 04:58 04:58 WBC RBC Hgb Hct MCV MCH MCHC RDW Plt Count MPV Seg Neutrophils % Lymphocytes % Monocytes % Metamyelocytes % Neutrophils # Lymphocytes # Monocytes # Platelet Estimate Sodium 140 Potassium 3.1 L Chloride 110 H Carbon Dioxide 19 L BUN 5 L Creatinine 0.53 L Est GFR ( Amer) > 60 Est GFR (Non-Af Amer) > 60 BUN/Creatinine Ratio 9 Glucose 103 Calculated Osmolality 288 Calcium 9.1 Magnesium 1.9 2.0 Specimen Rejected MCV Delta 03/06/18 07:19 WBC 12.7 H RBC 3.90 Hgb 12.2 Hct 34.3 L MCV 87.9 MCH 31.3 MCHC 35.6 H RDW 12.5 Plt Count 203 MPV 11.0 Seg Neutrophils % 80.0 Lymphocytes % 14.0 Monocytes % 4.0 Metamyelocytes % 2.0 H Neutrophils # 10.2 H Lymphocytes # 1.8 Monocytes # 0.5 Platelet Estimate Normal Sodium Potassium Chloride Carbon Dioxide BUN Creatinine Est GFR ( Amer) Est GFR (Non-Af Amer) BUN/Creatinine Ratio Glucose Calculated Osmolality Calcium Magnesium Specimen Rejected Assessment and Plan (1) Altered mental status Current visit: Yes Status: Acute Additional Plan: 1. Continue medical stabilization 2. We will follow-up Thank you for consultation Qualifiers: Altered mental status type: unspecified Qualified Code(s): R41.82 - Altered mental status, unspecified Consult Discharge Plan - Plan Referrals: NONE,PCP [Primary Care Provider] - Psychiatry Exam - Constitutional Vitals: Temp Pulse Resp BP Pulse Ox 99.2 F 94 14 110/71 97 03/05/18 22:07 03/05/18 22:07 03/05/18 22:07 03/05/18 22:07 03/05/18 22:07 General appearance: age & developmentally appropriate, well-groomed, well- nourished - Musculoskeletal Gait: normal Station: relaxed Strength & Tone: normal for patient - Psychiatric Patient Orientation: Yes Person, Yes Place, Yes Other (Lethargic) Level of alertness: Sedated Behavior: calm, cooperative, guarded, withdrawn Psychomotor activity: Slowed Eye Contact: Prolonged Contact Mood Description: Euthymic/stable, Other (Lethargic) Affect description: congruent with mood, blunted Speech Volume: Soft/Quiet, No speech Speech pattern: limited, non-verbal Language & Vocabulary: consistent with education Thought Process: Linear, Goal Oriented Thought Content: No Suicidal ideation, No Homicidal ideation, No Overt delusions Perceptual Disturbances: Yes Reacting to internal stimuli, No Auditory hallucinations, No Visual hallucinations Attention Span Ability: Unable to Focus Memory Description: Immediate Impaired, Recent Impaired, Remote Impaired Patient Reliability: Not Reliable Historian Fund of knowledge: Yes abstraction ability, Yes aware of current events Intelligence Estimate: Average Judgment: Limited Insight: Partial
[2018-03-07] MEDS: *HR* Heparin 5,000 UNIT/ML VIAL SQ SCH (05:28)
[2018-03-07 07:30] LABS: Basophils # 0.1 K/mcL (0.0-0.2); Basophils % 0.8 %; Eosinophils # 0.2 K/mcL (0.0-0.6); Eosinophils % 1.4 %; Hematocrit 33.1 % (35.3-44.9); Hemoglobin 11.7 g/dL (11.5-15.4); Immature Granulocytes % 4.6 % (0-4); Lymphocytes # 2.5 K/mcL (0.6-4.6); Lymphocytes % 18.9 %; Mean Corpuscular HGB Conc 35.3 g/dL (31.6-35.5); Mean Corpuscular Hemoglobin 30.8 pg (28.0-33.3); Mean Corpuscular Volume 87.1 fL (83.0-100.0); Mean Platelet Volume 10.7 fL (9.4-12.4); Monocytes # 0.7 K/mcL (0.0-1.3); Monocytes % 5.6 %; Platelet Count 239 K/mcL (140-400); Red Cell Distribution Width 12.8 % (11.5-14.5); Segmented Neutrophils % 68.7 %
[2018-03-07] MEDS: Ringers Solution, Lactated 1,000 ML IVC SCH (08:40)
[2018-03-07] MEDS: *HR* LORazepam 1 MG TABLET PO SCH ×3 (09:01→21:48)
[2018-03-07] MEDS ORDERED: Potassium Chloride Elixir 20 MEQ/15 ML UDC PO ONE (09:17)
[2018-03-07] MEDS ORDERED: Potassium Effervescent 25 MEQ TABLET.EFF PO ONE (09:17)
[2018-03-07 09:52] LABS: BUN/Creatinine Ratio 18 (6-26); Blood Urea Nitrogen 11 mg/dL (6-20); Calcium 9.5 mg/dL (8.6-10.3); Carbon Dioxide 24 mEq/L (23-29); Chloride 109 mEq/L (98-107); Glucose 136 mg/dL (70-105); Osmolality,Calculated 295 (280-300); Potassium 3.3 mEq/L (3.5-5.1); Sodium 142 mEq/L (136-145); eGFR For Non-African Americans > 60 (> 60)
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
--- NOTE | 2018-03-07 14:04 | Psychiatry Progress Note ---
Date of Encounter: 03/07/18 Time of Encounter: 13:50 Subjective Interval history: Psychiatric follow-up consultation. Patient seen for follow-up, case discussed was nursing staff. She continued to be lethargic, nonverbal, reported incontinent. Recommendation: 1. Continue medical stabilization 2. Start Haldol 1 mg by mouth twice a day to help clear her mental status. 3. Psychosocial history and information are needed to further evaluate this case. 4. At this time patient is inappropriate for 1 a she needs hands-on care 24 hours. We will continue to follow Review of Systems Psychiatric: Reports: anxiety, auditory hallucinations, visual hallucinations, other Results - Vital Signs Vital Signs: Temp Pulse Resp BP Pulse Ox 98.7 F 90 12 109/79 100 03/07/18 08:41 03/07/18 08:41 03/07/18 08:41 03/07/18 08:41 03/07/18 08:41 - Labs Labs: Laboratory Results - last 24 hr 03/07/18 03/07/18 03/07/18 06:37 06:37 09:27 WBC 13.1 H RBC 3.80 L Hgb 11.7 Hct 33.1 L MCV 87.1 MCH 30.8 MCHC 35.3 RDW 12.8 Plt Count 239 MPV 10.7 Immature Gran % 4.6 H Seg Neutrophils % 68.7 Lymphocytes % 18.9 Monocytes % 5.6 Eosinophils % 1.4 Basophils % 0.8 Neutrophils # 9.0 H Lymphocytes # 2.5 Monocytes # 0.7 Eosinophils # 0.2 Basophils # 0.1 Sodium 142 Potassium 3.3 L Chloride 109 H Carbon Dioxide 24 BUN 11 Creatinine 0.60 Est GFR ( Amer) > 60 Est GFR (Non-Af Amer) > 60 BUN/Creatinine Ratio 18 Glucose 136 H Calculated Osmolality 295 Calcium 9.5 Specimen Rejected Hemolyzed Assessment and Plan (1) Altered mental status Current visit: Yes Status: Acute Qualifiers: Altered mental status type: unspecified Qualified Code(s): R41.82 - Altered mental status, unspecified Consult Discharge Plan - Plan Referrals: NONE,PCP [Primary Care Provider] - Psychiatry Exam - Constitutional Vitals: Temp Pulse Resp BP Pulse Ox 98.7 F 90 12 109/79 100 03/07/18 08:41 03/07/18 08:41 03/07/18 08:41 03/07/18 08:41 03/07/18 08:41
[2018-03-07] MEDS ORDERED: Chloraseptic Spray 177 ML BOTTLE MM PRN (18:41)
[2018-03-07] MEDS ORDERED: Haloperidol Lactate 5 MG/ML VIAL IM ONE (22:11)
[2018-03-07] MEDS ORDERED: Haloperidol Lactate 5 MG/ML VIAL ONE (22:13)
[2018-03-07] MEDS ORDERED: *HR* LORazepam 2 MG/ML VIAL IM STA (22:44)
[2018-03-07] MEDS ORDERED: *HR* LORazepam 2 MG/ML VIAL ONE (22:47)
[2018-03-08] MEDS: Ringers Solution, Lactated 1,000 ML IVC SCH (04:00)
[2018-03-08 06:15] LABS: Basophils # 0.1 K/mcL (0.0-0.2); Basophils % 0.7 %; Eosinophils # 0.1 K/mcL (0.0-0.6); Eosinophils % 0.7 %; Hemoglobin 12.6 g/dL (11.5-15.4); Immature Granulocytes % 4.1 % (0-4); Lymphocytes # 2.2 K/mcL (0.6-4.6); Lymphocytes % 17.7 %; Mean Corpuscular Hemoglobin 31.3 pg (28.0-33.3); Mean Corpuscular Volume 89.3 fL (83.0-100.0); Mean Platelet Volume 9.9 fL (9.4-12.4); Monocytes # 1.1 K/mcL (0.0-1.3); Monocytes % 8.8 %; Neutrophils # 8.4 K/mcL (1.6-8.9); Platelet Count 295 K/mcL (140-400); Red Blood Count 4.03 M/mcL (3.82-4.97); Red Cell Distribution Width 12.9 % (11.5-14.5)
[2018-03-08 06:40] LABS: BUN/Creatinine Ratio 18 (6-26); Blood Urea Nitrogen 11 mg/dL (6-20); Calcium 9.6 mg/dL (8.6-10.3); Carbon Dioxide 25 mEq/L (23-29); Chloride 109 mEq/L (98-107); Glucose 102 mg/dL (70-105); Osmolality,Calculated 294 (280-300); Potassium 3.9 mEq/L (3.5-5.1); Sodium 142 mEq/L (136-145); eGFR For Non-African Americans > 60 (> 60)
[2018-03-08 08:14] LABS: Bilirubin,Urine Negative (Negative); Blood,Urine Negative (Negative); Clarity,Urine Cloudy (Clear); Color,Urine Yellow (Yellow); Glucose,Urine (UA) Normal (Normal); Ketones,Urine Negative (Negative); Leukocyte Esterase,Urine Negative (Negative); Nitrite,Urine Negative (Negative); Protein,Urine 30 mg/dL (Neg-Trace); Urobilinogen,Urine Normal (Normal)
[2018-03-08] MEDS: *HR* LORazepam 1 MG TABLET PO SCH ×3 (08:16→22:00)
[2018-03-08 08:29] LABS: Amorphous Sediment,Urine Many (Few); Squamous Epithelial Cell,Urine Few per lpf (None-Few); WBC,Urine 0-3 per hpf (0-3)
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
--- NOTE | 2018-03-08 15:27 | Psychiatry Progress Note ---
Date of Encounter: 03/08/18 Time of Encounter: 14:45 Subjective Interval history: Psychiatric progress note: Patient seen for follow-up. Case discussed was nursing staff and attending physician. She is more alert and responsive, reported improving in her oral intake forward and liquids. No agitation or combativeness. Limited verbal output. Impression: Delirium due to multiple causes including substance abuse. Recommendation: When medically stable, she can be discharged and referred to drug rehabilitation program. Recommendation shared with social worker assistant and nurses. Review of Systems Psychiatric: Reports: anxiety, auditory hallucinations, visual hallucinations, other Results - Vital Signs Vital Signs: Temp Pulse Resp BP Pulse Ox 98.8 F 89 16 122/91 99 03/08/18 13:00 03/08/18 13:00 03/08/18 13:00 03/08/18 13:00 03/08/18 13:00 - Labs Labs: Laboratory Results - last 24 hr 03/08/18 03/08/18 03/08/18 06:01 06:01 08:00 WBC 12.3 H RBC 4.03 Hgb 12.6 Hct 36.0 MCV 89.3 MCH 31.3 MCHC 35.0 RDW 12.9 Plt Count 295 MPV 9.9 Immature Gran % 4.1 H Seg Neutrophils % 68.0 Lymphocytes % 17.7 Monocytes % 8.8 Eosinophils % 0.7 Basophils % 0.7 Neutrophils # 8.4 Lymphocytes # 2.2 Monocytes # 1.1 Eosinophils # 0.1 Basophils # 0.1 Sodium 142 Potassium 3.9 Chloride 109 H Carbon Dioxide 25 BUN 11 Creatinine 0.62 Est GFR ( Amer) > 60 Est GFR (Non-Af Amer) > 60 BUN/Creatinine Ratio 18 Glucose 102 Calculated Osmolality 294 Calcium 9.6 Urine Color Yellow Urine Clarity Cloudy A Urine pH 7.0 Ur Specific [place] 1.020 Urine Protein 30 H Urine Glucose (UA) Normal Urine Ketones Negative Urine Blood Negative Urine Nitrite Negative Urine Bilirubin Negative Urine Urobilinogen Normal Ur Leukocyte Esterase Negative Urine Microscopic WBC 0-3 Ur Squamous Epith Cells Few Amorphous Sediment Many H Ur Culture Indicated? NO Assessment and Plan (1) Altered mental status Current visit: Yes Status: Acute Qualifiers: Altered mental status type: unspecified Qualified Code(s): R41.82 - Altered mental status, unspecified Consult Discharge Plan - Plan Referrals: NONE,PCP [Primary Care Provider] - Psychiatry Exam - Constitutional Vitals: Temp Pulse Resp BP Pulse Ox 98.8 F 89 16 122/91 99 03/08/18 13:00 03/08/18 13:00 03/08/18 13:00 03/08/18 13:00 03/08/18 13:00
[2018-03-08] MEDS: Ondansetron ODT 4 MG TAB.RAPDIS SL PRN (20:46)
[2018-03-09] MEDS: Ringers Solution, Lactated 1,000 ML IVC SCH ×2 (03:47→21:19)
[2018-03-09 04:37] LABS: Bilirubin,Urine Negative (Negative); Blood,Urine Negative (Negative); Clarity,Urine Cloudy (Clear); Color,Urine Yellow (Yellow); Glucose,Urine (UA) Normal (Normal); Ketones,Urine Negative (Negative); Leukocyte Esterase,Urine Small (Negative); Nitrite,Urine Negative (Negative); Protein,Urine Trace mg/dL (Neg-Trace); Specific Gravity,Urine 1.024 (1.010-1.025); Urobilinogen,Urine Normal (Normal)
[2018-03-09 04:39] LABS: Hyaline Casts,Urine Few per lpf (None-Few); RBC,Urine 0-3 per hpf (0-3); Squamous Epithelial Cell,Urine Many per lpf (None-Few)
[2018-03-09 04:49] LABS: Bacteria,Urine Few per hpf (None-Few); Calcium Oxalate Crystals,Urine Present; Mucus,Urine Many (Few); Yeast,Urine Moderate per hpf (None Seen)
[2018-03-09 04:56] LABS: Basophils # 0.1 K/mcL (0.0-0.2); Basophils % 0.6 %; Eosinophils # 0.1 K/mcL (0.0-0.6); Eosinophils % 0.8 %; Hematocrit 34.4 % (35.3-44.9); Hemoglobin 12.1 g/dL (11.5-15.4); Immature Granulocytes % 2.7 % (0-4); Lymphocytes # 2.7 K/mcL (0.6-4.6); Lymphocytes % 21.4 %; Mean Corpuscular HGB Conc 35.2 g/dL (31.6-35.5); Mean Corpuscular Hemoglobin 30.9 pg (28.0-33.3); Mean Platelet Volume 9.8 fL (9.4-12.4); Monocytes % 7.6 %; Neutrophils # 8.6 K/mcL (1.6-8.9); Platelet Count 292 K/mcL (140-400); Red Blood Count 3.91 M/mcL (3.82-4.97); Red Cell Distribution Width 13.3 % (11.5-14.5); Segmented Neutrophils % 66.9 %
[2018-03-09 05:03] LABS: BUN/Creatinine Ratio 12 (6-26); Blood Urea Nitrogen 11 mg/dL (6-20); Calcium 10.1 mg/dL (8.6-10.3); Carbon Dioxide 22 mEq/L (23-29); Chloride 110 mEq/L (98-107); Glucose 114 mg/dL (70-105); Osmolality,Calculated 294 (280-300); Potassium 4.5 mEq/L (3.5-5.1); Sodium 142 mEq/L (136-145); eGFR For Non-African Americans > 60 (> 60)
[2018-03-09] MEDS: *HR* LORazepam 1 MG TABLET PO SCH ×3 (10:26→21:18)
--- NOTE | 2018-03-09 12:22 | Internal Med Progress Note ---
Hospitalist Progress Note - Encounter Date of Encounter: 03/09/18 Time of Encounter: 12:19 - Subjective Interval History: Patient seen and examined at bedside today. Continues to be withdrawn but is making an attempt at verbalizing. She remains confused and somewhat disoriented and inappropriate at times. She is expressing that she is wanting to proceed with rehab. - Exam Vitals: Temp Pulse Resp BP Pulse Ox 98.6 F 98 16 117/81 99 03/09/18 10:51 03/09/18 10:51 03/09/18 10:51 03/09/18 10:51 03/09/18 10:51 Exam: PHYSICAL EXAMINATION: GENERAL: The patient is a well-developed, well-nourished if female who appears to be withdrawn, she is alert and oriented to self and situation, disoriented to place and time HEENT: Head is normocephalic and atraumatic. Extraocular muscles are intact. Pupils are equal, round, and reactive to light and accommodation. NECK: Supple. No carotid bruits. No lymphadenopathy or thyromegaly. LUNGS: Clear to auscultation AP and L. HEART: Regular rate and rhythm, S1, S2 without murmur. ABDOMEN: Soft, nontender, and nondistended. Positive bowel sounds. No hepatosplenomegaly was noted. NEUROLOGIC: Cranial nerves II through XII are grossly intact. PSYCHIATRIC: Flat affect, and withdrawn but denies suicidal or homicidal ideations admits to depression. SKIN: No ulceration or induration present. Visible track mackenzie on bilateral upper and bilateral lower extremity - Assessment and Plan (1) Acute encephalopathy Current Visit: Yes Status: Acute Assessment and Plan: Patient presents with altered mental status Etiology unclear however was found down for an unknown amount of time, consider anoxia as cause of encephalopathy. Additionally, patient has past history of TBI. Of note she is also suffering from polysubstance abuse and regularly uses opiates including IV heroin which could also be contributed to encephalopathic picture Patient was recently admitted to [facility] after expressing acute encephalopathy and has been suffering from mutism and inappropriate behavior including public masturbation since admission to [facility] Blood cultures completed a [facility] blood cultures obtained here remain pending CT head completed a [facility] found to be negative for acute intracranial abnormality Obtain MRI brain for further evaluation for acute intracranial pathology contributing to her current presentation Proceed with TTE; patient also has leukocytosis of unknown etiology; consider vegetation 03/08/18--LVEF 60%. Normal right ventricular structure and function. Mild mitral regurgitation. Mild tricuspid regurgitation. No pulmonary hypertension. Valvular vegetations are not observed on this study. With mental status does not improve consider lumbar puncture And psychiatry seeing in consultation throughout stay-to believe that the delirium is caused by substance abuse. 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 Per my assessment this morning she continues to be withdrawn. She is attempting to verbalize today. Discuss plan of care including continuing sr. social media & mobile manager consult and is SANE the nurse consult. Discussed discharging to a rehabilitation program. Informed the patient that we will undergo MRI evaluation of brain today. Patient agreeable to plan of care. 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 She nods appropriately when asked questions however and follows commands although she has a cautious look on her face when asked to do something. Her UDS right now does not show illicit substances and there are no clinical or hematologic signs of infection. No focal deficits apparent. She is not exhibiting signs of anoxic brain injury which was the original concern per family. c -She may benefit from an MRI to ensure there are no focal findings seen however undergoing this procedure may require sedation if she does not stay still for this. -Will consult neurology and psychiatry. -Will continue 1 to 1 and observe her overnight. She was pink-slipped in the ER. 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 In hopes to improve her catatonia. Once she is able to take in oral medications as well as able to maintain hydration and eat she can be discharged to psychiatry for further treatment either as a voluntary patient or involuntary 03/06-patient appears more interactive ambulating in the room following simple directions. Continues to be nonverbal shaking head yes or no. We will continue with Ativan orally patient has lost IV access and we have not been able to reestablish 03/07 patient more interactive. Continues to be nonverbal continue with oral Ativan once medically stable she will be transferred to psychiatry unit 03/08 more, interactive - cont to be nonverbal shakes head yes or no cont with Ativan, Haldol per psych recommendation- she is incontinent of bowel bladder she may need manager long term care placement - we will need to explore placement options- sr. social media & mobile manager consulted. 03/09--patient verbalizing today continues to mostly answer questions nonverbally with yes or no head nod. She is not incontinent of bowel or bladder at this time. Continuous one-to-one sitter. (3) Hypokalemia Current Visit: Yes Status: Resolved Assessment and Plan: Resolved (4) Substance use disorder Current Visit: Yes Status: Chronic Assessment and Plan: Historically reported and reviewed within records Reported opiate abuse including heroin Review of [facility] records does show positive hepatitis C tox screen shows benzodiazepines which are currently treating patient We will continue with benzodiazepines for catatonia monitor electrolytes-and replace (5) Leukocytosis Current Visit: Yes Status: Acute Assessment and Plan: White count slowly rising currently 13 today patient has had poor oral intake however she does have a low-grade fever 99. We will obtain urinalysis and monitor closely for any signs of infection 03/08 white count down we will monitor - urinalysis ok - monitor for s/sx of infection 03/09-leukocytosis persists, WBC 12.8, etiology unclear, monitor for s/sx of infection, blood cultures pending (6) Altered mental status Current Visit: Yes Status: Acute (7) DVT prophylaxis Current Visit: Yes Status: Acute Assessment and Plan: SubQ heparin for DVT prophylaxis - Time Spent with Patient Total time spent is greater than 50% in coordination of care (as documented) at patient's floor/unit and/or counseling patient: less than 15 minutes Plan of Care Discussed with: patient Internal Medicine: Result - Labs CBC & Chem 7: 03/09/18 04:38 03/09/18 04:38 Labs: Short CBC 03/09/18 Range/Units 04:38 WBC 12.8 H (4.3-11.1) K/mcL Hgb 12.1 (11.5-15.4) g/dL Hct 34.4 L (35.3-44.9) % Plt Count 292 (140-400) K/mcL Neutrophils # 8.6 (1.6-8.9) K/mcL BMP 03/09/18 04:38 Sodium 142 Potassium 4.5 Chloride 110 H Carbon Dioxide 22 L BUN 11 Creatinine 0.89 Glucose 114 H Calcium 10.1 Urine 03/09/18 Range/Units 04:21 Urine Color Yellow (Yellow) Urine Clarity Cloudy A (Clear) Urine pH 6.0 (5.0-8.0) pH Units Ur Specific [place] 1.024 (1.010-1.025) Urine Protein Trace (Neg-Trace) mg/dL Urine Glucose (UA) Normal (Normal) mg/dL Consult Discharge Plan - Plan Referrals: NONE,PCP [Primary Care Provider] - (5) Leukocytosis Qualifiers: Leukocytosis type: unspecified Qualified Code(s): D72.829 - Elevated white blood cell count, unspecified (6) Altered mental status Qualifiers: Altered mental status type: unspecified Qualified Code(s): R41.82 - Altered mental status, unspecified
[2018-03-09] MEDS: Ondansetron ODT 4 MG TAB.RAPDIS SL PRN (23:50)
[2018-03-10 05:51] LABS: Basophils # 0.1 K/mcL (0.0-0.2); Basophils % 0.5 %; Eosinophils # 0.1 K/mcL (0.0-0.6); Eosinophils % 0.8 %; Hematocrit 36.3 % (35.3-44.9); Hemoglobin 12.7 g/dL (11.5-15.4); Immature Granulocytes % 2.8 % (0-4); Lymphocytes # 2.6 K/mcL (0.6-4.6); Mean Corpuscular Hemoglobin 31.7 pg (28.0-33.3); Mean Corpuscular Volume 90.5 fL (83.0-100.0); Mean Platelet Volume 9.4 fL (9.4-12.4); Monocytes # 0.7 K/mcL (0.0-1.3); Monocytes % 5.4 %; Neutrophils # 9.2 K/mcL (1.6-8.9); Platelet Count 350 K/mcL (140-400); Red Blood Count 4.01 M/mcL (3.82-4.97); Red Cell Distribution Width 13.1 % (11.5-14.5); Segmented Neutrophils % 70.5 %
[2018-03-10 06:29] LABS: BUN/Creatinine Ratio 15 (6-26); Blood Urea Nitrogen 11 mg/dL (6-20); Calcium 9.3 mg/dL (8.6-10.3); Carbon Dioxide 21 mEq/L (23-29); Chloride 107 mEq/L (98-107); Glucose 177 mg/dL (70-105); Osmolality,Calculated 294 (280-300); Potassium 3.2 mEq/L (3.5-5.1); Sodium 140 mEq/L (136-145); eGFR For Non-African Americans > 60 (> 60)
[2018-03-10] MEDS: *HR* LORazepam 1 MG TABLET PO SCH ×2 (09:39→15:12)
--- NOTE | 2018-03-10 09:47 | Internal Med Progress Note ---
Hospitalist Progress Note - Encounter Date of Encounter: 03/10/18 Time of Encounter: 09:27 - Subjective Interval History: Patient seen and examined at bedside today. Mother at bedside today. With patient's permission I was able to discuss patient's plan of care and case with mother. The patient is much more verbal this morning and confusion appears to be improving. She is continuing to express intent to discharge with rehabilitation - Exam Vitals: Temp Pulse Resp BP Pulse Ox 98.5 F 92 16 121/79 98 03/09/18 19:10 03/09/18 19:10 03/09/18 19:10 03/09/18 19:10 03/09/18 19:10 Exam: PHYSICAL EXAMINATION: GENERAL: The patient is a well-developed, well-nourished if female who appears to be withdrawn, she is alert and oriented to self and situation, disoriented to place and time HEENT: Head is normocephalic and atraumatic. Extraocular muscles are intact. Pupils are equal, round, and reactive to light and accommodation. NECK: Supple. No carotid bruits. No lymphadenopathy or thyromegaly. LUNGS: Clear to auscultation AP and L. HEART: Regular rate and rhythm, S1, S2 without murmur rubs or gallops. ABDOMEN: Soft, nontender, and nondistended. Positive bowel sounds. No hepatosplenomegaly was noted. NEUROLOGIC: Cranial nerves II through XII are grossly intact. PSYCHIATRIC: Flat affect, but denies suicidal or homicidal ideations admits to depression. She is fearful however at this time is unable to clarify what is probably interferes SKIN: No ulceration or induration present. 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 Additionally, patient has past history of TBI. Of note she is also suffering from polysubstance abuse and regularly uses opiates including IV heroin which could also be contributed to encephalopathic picture Patient was recently admitted to [facility] after expressing acute encephalopathy and has been suffering from mutism and inappropriate behavior including public masturbation since admission to [facility] Blood cultures completed a [facility] blood cultures obtained here remain pending CT head completed a [facility] found to be negative for acute intracranial abnormality Obtain MRI brain for further evaluation for acute intracranial pathology contributing to her current presentation Proceed with TTE; patient also has leukocytosis of unknown etiology; consider vegetation 03/08/18--LVEF 60%. Normal right ventricular structure and function. Mild mitral regurgitation. Mild tricuspid regurgitation. No pulmonary hypertension. Valvular vegetations are not observed on this study. With mental status does not improve consider lumbar puncture And psychiatry seeing in consultation throughout stay-to believe that the delirium is caused by substance abuse. 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 She remains unable to provide self care, however, I feel there is most likely psychosocial component contributing to this. Her mother is at bedside today and states that at baseline the patient is able to take care of herself and make her own decisions without difficulty. Still having issues with discharge planning. Plan is to discharge to inpatient rehabilitation facility however, patient will need to be medically cleared first. On days prior she was refusing neuro imaging. She is now agreeable MRI that at this time. I have discussed this case with Dr. Ellis; given the lack of fevers and lack of obvious source of infection and negative cultures greater than 48 hours patient is a low risk for infection. Low risk for endocarditis. TTE without any obvious vegetation. Awaiting completion of MRI. DIAGNOSIS: 1-acute encephalopathy, etiology unclear most likely anoxia with drug overdose; 03/10 clinically, patient continuing to improve, verbalizing today, confusion subsiding. Continue with MRI of brain for further assessment and evaluation of cause of encephalopathy 2-selective mutism-patient verbalizing today 3-ejjfonvvywe-hlsjb potassium 3.2 this morning, replete as necessary 4-substance abuse disorder-history of substance abuse disorder including opiates and IV heroin. nutrition services aide and nurse navigator following plan to discharge to rehabilitation facility 6-degvmxaxxzcx-cytrzgxg unclear, continues to have leukocytosis, WBC 13.1. No obvious source of infection, blood cultures pending. Remains afebrile 6-altered mental status-clinically, continuing to improve. Patient verbalizing appropriately today, confusion improving. 7-DVT prophylaxis-continuous heparin - Time Spent with Patient Total time spent is greater than 50% in coordination of care (as documented) at patient's floor/unit and/or counseling patient: less than 15 minutes Plan of Care Discussed with: patient Internal Medicine: Result - Labs CBC & Chem 7: 03/10/18 05:32 03/10/18 05:32 Labs: Short CBC 03/10/18 Range/Units 05:32 WBC 13.1 H (4.3-11.1) K/mcL Hgb 12.7 (11.5-15.4) g/dL Hct 36.3 (35.3-44.9) % Plt Count 350 (140-400) K/mcL Neutrophils # 9.2 H (1.6-8.9) K/mcL BMP 03/10/18 05:32 Sodium 140 Potassium 3.2 L Chloride 107 Carbon Dioxide 21 L BUN 11 Creatinine 0.75 Glucose 177 H Calcium 9.3 Consult Discharge Plan - Plan Referrals: NONE,PCP [Primary Care Provider] - (5) Leukocytosis Qualifiers: Leukocytosis type: unspecified Qualified Code(s): D72.829 - Elevated white blood cell count, unspecified (6) Altered mental status Qualifiers: Altered mental status type: unspecified Qualified Code(s): R41.82 - Altered mental status, unspecified
[2018-03-10] MEDS: Ondansetron ODT 4 MG TAB.RAPDIS SL PRN (11:35)
[2018-03-10] MEDS: Ringers Solution, Lactated 1,000 ML IVC SCH (15:17)
[2018-03-11 05:01] LABS: Hemoglobin 13.3 g/dL (11.5-15.4)
[2018-03-11 05:12] LABS: Basophils # 0.1 K/mcL (0.0-0.2); Basophils % 0.5 %; Eosinophils # 0.1 K/mcL (0.0-0.6); Eosinophils % 0.5 %; Hematocrit 38.2 % (35.3-44.9); Immature Granulocytes % 2.6 % (0-4); Immature Platelets 2.8 % (1.1-6.1); Lymphocytes % 16.2 %; Mean Corpuscular HGB Conc 34.8 g/dL (31.6-35.5); Mean Corpuscular Hemoglobin 31.4 pg (28.0-33.3); Mean Corpuscular Volume 90.1 fL (83.0-100.0); Mean Platelet Volume 10.2 fL (9.4-12.4); Monocytes # 0.9 K/mcL (0.0-1.3); Monocytes % 4.9 %; Neutrophils # 13.7 K/mcL (1.6-8.9); Platelet Count 313 K/mcL (140-400); Red Blood Count 4.24 M/mcL (3.82-4.97); Red Cell Distribution Width 13.4 % (11.5-14.5); Segmented Neutrophils % 75.3 %
[2018-03-11 05:16] LABS: BUN/Creatinine Ratio 14 (6-26); Blood Urea Nitrogen 10 mg/dL (6-20); Calcium 9.5 mg/dL (8.6-10.3); Carbon Dioxide 22 mEq/L (23-29); Chloride 106 mEq/L (98-107); Glucose 162 mg/dL (70-105); Osmolality,Calculated 293 (280-300); Potassium 3.4 mEq/L (3.5-5.1); Sodium 140 mEq/L (136-145); eGFR For Non-African Americans > 60 (> 60)
[2018-03-11 05:43] LABS: Platelet Estimate Normal (Normal)
[2018-03-11] MEDS: Ondansetron ODT 4 MG TAB.RAPDIS SL PRN ×2 (06:37)
[2018-03-11] MEDS: *HR* LORazepam 1 MG TABLET PO SCH ×4 (07:55→20:10)
--- NOTE | 2018-03-11 13:29 | Internal Med Progress Note ---
Hospitalist Progress Note - Encounter Date of Encounter: 03/11/18 Time of Encounter: 13:25 - Subjective Interval History: Patient seen and examined at bedside today. She reports that she is feeling much better today. She is continuing to express intent for discharge to inpatient rehabilitation. - Exam Vitals: Temp Pulse Resp BP Pulse Ox 98.7 F 131 18 118/84 100 03/11/18 11:29 03/11/18 11:29 03/11/18 11:29 03/11/18 11:29 03/11/18 11:29 Exam: PHYSICAL EXAMINATION: GENERAL: The patient is a well-developed, well-nourished if female who appears to be withdrawn, she is alert and oriented to self and situation, disoriented to place and time HEENT: Head is normocephalic and atraumatic. Extraocular muscles are intact. Pupils are equal, round, and reactive to light and accommodation. NECK: Supple. No carotid bruits. No lymphadenopathy or thyromegaly. LUNGS: Clear to auscultation AP and L. HEART: Regular rate and rhythm, S1, S2, without murmur rubs or gallops. ABDOMEN: Soft, nontender, and nondistended. Positive bowel sounds. No hepatosplenomegaly was noted. NEUROLOGIC: Cranial nerves II through XII are grossly intact. PSYCHIATRIC: Flat affect, but denies suicidal or homicidal ideations admits to depression. She is fearful however at this time is unable to clarify what is probably interferes Musculoskeletal: No Osler's nodes noted SKIN: No ulceration or induration present. 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 Additionally, patient has past history of TBI. Of note she is also suffering from polysubstance abuse and regularly uses opiates including IV heroin which could also be contributed to encephalopathic picture Patient was recently admitted to [facility] after expressing acute encephalopathy and has been suffering from mutism and inappropriate behavior including public masturbation since admission to [facility] Blood cultures completed a [facility] blood cultures obtained here remain pending CT head completed a [facility] found to be negative for acute intracranial abnormality Obtain MRI brain for further evaluation for acute intracranial pathology contributing to her current presentation Proceed with TTE; patient also has leukocytosis of unknown etiology; consider vegetation 03/08/18--LVEF 60%. Normal right ventricular structure and function. Mild mitral regurgitation. Mild tricuspid regurgitation. No pulmonary hypertension. Valvular vegetations are not observed on this study. With mental status does not improve consider lumbar puncture And psychiatry seeing in consultation throughout stay-to believe that the delirium is caused by substance abuse. 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 She is conversational and alert and oriented 3 and appropriate. She is now able to provide self care and complete ADLs. We are continuing to have issues with discharge planning. Plan is to discharge to inpatient rehabilitation facility however, patient will need to be medically cleared first. MRI completed resulting in no acute intracranial abnormalities. TTE completed without findings concerning for vegetation. Overnight the patient has worsening leukocytosis and tachycardia. She does not appear to be acutely ill and there is no obvious source of infection. I will obtain a urinalysis now as well as portable chest x-ray for further evaluation. There is risk for aspiration and possible pneumonia as the patient was found unresponsive. Additionally, urine has small leukocyte esterase. Otherwise, clinically the patient remain stable. Continue closely monitor. DIAGNOSIS: 1-acute encephalopathy, etiology unclear most likely anoxia with drug overdose; 03/10 clinically, patient continuing to improve, verbalizing today, confusion subsiding. Continue with MRI of brain for further assessment and evaluation of cause of encephalopathy 2-selective mutism-patient verbalizing today 4-mjxxlhidbst-ivxvx potassium 3.2 this morning, replete as necessary 4-substance abuse disorder-history of substance abuse disorder including opiates and IV heroin. account services specialist and nurse navigator following plan to discharge to rehabilitation facility 7-nldnmmoytxva-nepofotw unclear, continues to have leukocytosis, WBC 13.1. No obvious source of infection, blood cultures pending. Remains afebrile 6-altered mental status-clinically, continuing to improve. Patient verbalizing appropriately today, confusion improving. 7-DVT prophylaxis-continuous heparin - Time Spent with Patient Total time spent is greater than 50% in coordination of care (as documented) at patient's floor/unit and/or counseling patient: less than 15 minutes Plan of Care Discussed with: patient Internal Medicine: Result - Labs CBC & Chem 7: 03/11/18 04:22 03/11/18 04:22 Labs: Short CBC 03/11/18 Range/Units 04:22 WBC 18.2 H (4.3-11.1) K/mcL Hgb 13.3 (11.5-15.4) g/dL Hct 38.2 (35.3-44.9) % Plt Count 313 (140-400) K/mcL Neutrophils # 13.7 H (1.6-8.9) K/mcL BMP 03/11/18 04:22 Sodium 140 Potassium 3.4 L Chloride 106 Carbon Dioxide 22 L BUN 10 Creatinine 0.73 Glucose 162 H Calcium 9.5 - Impressions Impressions Brain MRI 03/09/18 12:30 IMPRESSION: No acute intracranial abnormality on motion degraded MRI. D/ / Bud Durand MD / Bud Durand MD Interpreting Provider: Bud Durand MD Consult Discharge Plan - Plan Referrals: NONE,PCP [Primary Care Provider] - (5) Leukocytosis Qualifiers: Leukocytosis type: unspecified Qualified Code(s): D72.829 - Elevated white blood cell count, unspecified (6) Altered mental status Qualifiers: Altered mental status type: unspecified Qualified Code(s): R41.82 - Altered mental status, unspecified
[2018-03-11 13:44] LABS: Bilirubin,Urine Negative (Negative); Blood,Urine Negative (Negative); Clarity,Urine Cloudy (Clear); Color,Urine Yellow (Yellow); Glucose,Urine (UA) Normal (Normal); Ketones,Urine Negative (Negative); Leukocyte Esterase,Urine Trace (Negative); Nitrite,Urine Negative (Negative); PH,Urine 6.5 pH Units (5.0-8.0); Protein,Urine 30 mg/dL (Neg-Trace); Specific Gravity,Urine 1.018 (1.010-1.025); Urobilinogen,Urine Normal (Normal)
[2018-03-11 13:48] LABS: Bacteria,Urine None Seen per hpf (None-Few); Hyaline Casts,Urine None Seen per lpf (None-Few); RBC,Urine 0-3 per hpf (0-3); Squamous Epithelial Cell,Urine Many per lpf (None-Few)
[2018-03-11] MEDS: Ringers Solution, Lactated 1,000 ML IVC SCH (15:25)
[2018-03-12] MEDS: Ringers Solution, Lactated 1,000 ML IVC SCH (09:40)
[2018-03-12] MEDS: *HR* LORazepam 1 MG TABLET PO SCH ×3 (10:01→20:22)
--- NOTE | 2018-03-12 11:34 | Internal Med Progress Note ---
Hospitalist Progress Note - Encounter Date of Encounter: 03/12/18 Time of Encounter: 11:27 - Subjective Interval History: Patient seen and examined at bedside today. She reports that she is feeling depressed today. She has again displaying withdrawn behavior, however, she is continuing to express intent for discharge to inpatient rehabilitation. - Exam Vitals: Temp Pulse Resp BP Pulse Ox 98.2 F 106 14 116/79 99 03/12/18 10:56 03/12/18 10:56 03/12/18 10:56 03/12/18 10:56 03/12/18 10:56 Exam: PHYSICAL EXAMINATION: GENERAL: The patient is a well-developed, well-nourished if female who appears to be withdrawn, she is alert and oriented to self and situation, disoriented to place and time HEENT: Head is normocephalic and atraumatic. Extraocular muscles are intact. Pupils are equal, round, and reactive to light and accommodation. LUNGS: Clear to auscultation AP and L. HEART: Regular rate and rhythm, S1, S2, without murmur rubs or gallops. ABDOMEN: Soft, nontender, and nondistended. Positive bowel sounds. No hepatosplenomegaly was noted. NEUROLOGIC: Cranial nerves II through XII are grossly intact. PSYCHIATRIC: Flat affect, but denies suicidal or homicidal ideations admits to depression. She is displaying withdrawn behavior Musculoskeletal: No Osler's nodes noted SKIN: No ulceration or induration present. 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 Additionally, patient has past history of TBI. Of note she is also suffering from polysubstance abuse and regularly uses opiates including IV heroin which could also be contributed to encephalopathic picture Patient was recently admitted to [place] after expressing acute encephalopathy and has been suffering from mutism and inappropriate behavior including public masturbation since admission to [facility] Blood cultures completed a [facility] blood cultures obtained here remain pending CT head completed a [place] found to be negative for acute intracranial abnormality Obtain MRI brain for further evaluation for acute intracranial pathology contributing to her current presentation Proceed with TTE; patient also has leukocytosis of unknown etiology; consider vegetation 03/08/18--LVEF 60%. Normal right ventricular structure and function. Mild mitral regurgitation. Mild tricuspid regurgitation. No pulmonary hypertension. Valvular vegetations are not observed on this study. With mental status does not improve consider lumbar puncture And psychiatry seeing in consultation throughout stay-to believe that the delirium is caused by substance abuse. 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 She is conversational but more withdrawn than yesterday. He is reporting she is feeling depressed today as she is having cravings and withdrawal from IVDU. She remains able to provide self care and complete ADLs. Discussed with ANDREE and VIKTORIYA this morning and patient is discharged to inpatient rehabilitation center on Thursday. . MRI completed resulting in no acute intracranial abnormalities. TTE completed without findings concerning for vegetation. Yesterday the patient was found to have leukocytosis with WBC of 18.1. No obvious source of infection. Chest x-ray obtained with concerns for aspiration pneumonia was found unresponsive secondary to drug overdose. However, chest x-rays were negative for acute process. Urinalysis unconvincing for urinary tract infection. We are in the process of attempting to repeat CBC however, the patient is a difficult stick due to history of IVDU and is also currently refusing cholesterol additional labs. I have discussed the need for additional labs and the patient is now agreeable for lab draw. Lab work remains pending at this time. The patient does not appear to be toxic and is continuing to be afebrile, her only positive SIRS criteria is mild tachycardia. DIAGNOSIS: 1-acute encephalopathy,-improving 2-selective mutism-resolved 6-hpzqndidrbm-cpvsfdon but remained stable 4-substance abuse disorder-history of substance abuse disorder including opiates and IV heroin. 2 DC to inpatient rehabilitation on Thursday 9-hvqvxizqspdk-aotrsyuo, awaiting repeat labs 6-altered mental status-clinically, continuing to improve. Patient verbalizing appropriately today, confusion improving. 7-DVT prophylaxis-continuous heparin - Time Spent with Patient Total time spent is greater than 50% in coordination of care (as documented) at patient's floor/unit and/or counseling patient: less than 15 minutes Plan of Care Discussed with: patient Internal Medicine: Result - Labs CBC & Chem 7: 03/11/18 04:22 03/11/18 04:22 Labs: Urine 03/11/18 Range/Units 13:30 Urine Color Yellow (Yellow) Urine Clarity Cloudy A (Clear) Urine pH 6.5 (5.0-8.0) pH Units Ur Specific [place] 1.018 (1.010-1.025) Urine Protein 30 H (Neg-Trace) mg/dL Urine Glucose (UA) Normal (Normal) mg/dL - Impressions Impressions Chest X-Ray 03/11/18 13:02 IMPRESSION: No radiographic evidence for aspiration pneumonitis. D/ / Timbo Mcguire MD / Timbo Mcguire MD Interpreting Provider: Timbo Mcguire MD Consult Discharge Plan - Plan Referrals: NONE,PCP [Primary Care Provider] - (5) Leukocytosis Qualifiers: Leukocytosis type: unspecified Qualified Code(s): D72.829 - Elevated white blood cell count, unspecified (6) Altered mental status Qualifiers: Altered mental status type: unspecified Qualified Code(s): R41.82 - Altered mental status, unspecified
--- NOTE | 2018-03-12 18:42 | Event Note ---
Date of Encounter: 03/12/18 Time of Encounter: 18:41 Daily labs pending. Nursing staff notified of the need and importance of daily labs. Multiple attempts have been made however, staff remains unsuccessful drawing labs. Continue to attempt to draw daily labs.
[2018-03-13 00:39] LABS: Basophils # 0.1 K/mcL (0.0-0.2); Basophils % 0.5 %; Eosinophils # 0.1 K/mcL (0.0-0.6); Eosinophils % 0.7 %; Hematocrit 38.4 % (35.3-44.9); Hemoglobin 13.5 g/dL (11.5-15.4); Immature Granulocytes % 1.9 % (0-4); Lymphocytes # 3.4 K/mcL (0.6-4.6); Lymphocytes % 19.1 %; Mean Corpuscular HGB Conc 35.2 g/dL (31.6-35.5); Mean Corpuscular Hemoglobin 31.6 pg (28.0-33.3); Mean Corpuscular Volume 89.9 fL (83.0-100.0); Mean Platelet Volume 9.4 fL (9.4-12.4); Monocytes % 5.8 %; Neutrophils # 12.8 K/mcL (1.6-8.9); Platelet Count 373 K/mcL (140-400); Red Blood Count 4.27 M/mcL (3.82-4.97); Red Cell Distribution Width 13.2 % (11.5-14.5)
[2018-03-13 00:54] LABS: BUN/Creatinine Ratio 16 (6-26); Blood Urea Nitrogen 12 mg/dL (6-20); Calcium 9.5 mg/dL (8.6-10.3); Carbon Dioxide 23 mEq/L (23-29); Chloride 108 mEq/L (98-107); Glucose 110 mg/dL (70-105); Osmolality,Calculated 286 (280-300); Potassium 3.8 mEq/L (3.5-5.1); Sodium 138 mEq/L (136-145); eGFR For Non-African Americans > 60 (> 60)
[2018-03-13] MEDS: Acetaminophen 325 MG TABLET PO PRN (04:32)
[2018-03-13] MEDS: Ondansetron ODT 4 MG TAB.RAPDIS SL PRN (06:51)
[2018-03-13 07:10] LABS: Basophils # 0.1 K/mcL (0.0-0.2); Basophils % 0.4 %; Eosinophils # 0.2 K/mcL (0.0-0.6); Eosinophils % 1.2 %; Hematocrit 36.5 % (35.3-44.9); Hemoglobin 12.9 g/dL (11.5-15.4); Immature Granulocytes % 2.1 % (0-4); Lymphocytes # 2.5 K/mcL (0.6-4.6); Lymphocytes % 17.4 %; Mean Corpuscular HGB Conc 35.3 g/dL (31.6-35.5); Mean Corpuscular Hemoglobin 31.5 pg (28.0-33.3); Monocytes # 0.8 K/mcL (0.0-1.3); Monocytes % 5.2 %; Neutrophils # 10.7 K/mcL (1.6-8.9); Platelet Count 272 K/mcL (140-400); Red Cell Distribution Width 13.2 % (11.5-14.5); Segmented Neutrophils % 73.7 %
[2018-03-13 07:25] LABS: BUN/Creatinine Ratio 20 (6-26); Blood Urea Nitrogen 14 mg/dL (6-20); Calcium 9.7 mg/dL (8.6-10.3); Carbon Dioxide 23 mEq/L (23-29); Chloride 108 mEq/L (98-107); Glucose 104 mg/dL (70-105); Osmolality,Calculated 293 (280-300); Potassium 4.5 mEq/L (3.5-5.1); Sodium 141 mEq/L (136-145); eGFR For Non-African Americans > 60 (> 60)
[2018-03-13 07:45] LABS: Platelet Estimate Normal (Normal)
--- NOTE | 2018-03-13 08:51 | Internal Med Progress Note ---
Hospitalist Progress Note - Encounter Date of Encounter: 03/13/18 Time of Encounter: 08:49 - Subjective Interval History: Patient seen and examined at bedside today. She reports that she is feeling better today. Her behavior is improving and she is more verbal this morning. She is continuing to express intent for discharge to inpatient rehabilitation. - Exam Vitals: Temp Pulse Resp BP Pulse Ox 98.5 F 98 18 114/82 98 03/13/18 07:55 03/13/18 07:55 03/13/18 07:55 03/13/18 07:55 03/13/18 07:55 Exam: PHYSICAL EXAMINATION: GENERAL: The patient is a well-developed, well-nourished if female who appears to be withdrawn, she is alert and oriented to self and situation, disoriented to place and time HEENT: Head is normocephalic and atraumatic. Extraocular muscles are intact. Pupils are equal, round, and reactive to light and accommodation. LUNGS: Clear to auscultation AP and L. HEART: Regular rate and rhythm, S1, S2, without murmur rubs or gallops. ABDOMEN: Soft, nontender, and nondistended. Positive bowel sounds. No hepatosplenomegaly was noted. NEUROLOGIC: Cranial nerves II through XII are grossly intact. PSYCHIATRIC: Flat affect, but denies suicidal or homicidal ideations admits to depression. Musculoskeletal: No Osler's nodes noted SKIN: No ulceration or induration present. 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 Additionally, patient has past history of TBI. Of note she is also suffering from polysubstance abuse and regularly uses opiates including IV heroin which could also be contributed to encephalopathic picture Patient was recently admitted to [place] after expressing acute encephalopathy and has been suffering from mutism and inappropriate behavior including public masturbation since admission to [facility] Blood cultures completed a [facility] blood cultures obtained here remain pending CT head completed a [place] found to be negative for acute intracranial abnormality Obtain MRI brain for further evaluation for acute intracranial pathology contributing to her current presentation Proceed with TTE; patient also has leukocytosis of unknown etiology; consider vegetation 03/08/18--LVEF 60%. Normal right ventricular structure and function. Mild mitral regurgitation. Mild tricuspid regurgitation. No pulmonary hypertension. Valvular vegetations are not observed on this study. With mental status does not improve consider lumbar puncture And psychiatry seeing in consultation throughout stay-to believe that the delirium is caused by substance abuse. 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 Mental status is back to baseline she is alert and oriented 3 and appropriate. Today she is engaging in conversation and more agreeable to plan of care. Leukocytosis persists, etiology unclear. Consider urinary tract infections likely source. Continue with sending urine for culture. Empirically treat with Macrobid at this time. Daily labs. Would cultures pending. DIAGNOSIS: 1-acute encephalopathy,-improving 2-selective mutism-resolved 9-neeofgzaesq-renpmiff but remained stable 4-substance abuse disorder-history of substance abuse disorder including opiates and IV heroin. 2 D/C to inpatient rehabilitation on Thursday 8-rthajldygzgj-dntvujhl, awaiting repeat labs 6-altered mental status-clinically, continuing to improve. Patient verbalizing appropriately today, confusion improving. 7-DVT prophylaxis-continuous heparin - Time Spent with Patient Total time spent is greater than 50% in coordination of care (as documented) at patient's floor/unit and/or counseling patient: less than 15 minutes Plan of Care Discussed with: patient Internal Medicine: Result - Labs CBC & Chem 7: 03/13/18 06:41 03/13/18 06:41 Labs: Short CBC 03/13/18 03/13/18 Range/Units 00:27 06:41 WBC 17.8 H 14.5 H (4.3-11.1) K/mcL Hgb 13.5 12.9 (11.5-15.4) g/dL Hct 38.4 36.5 (35.3-44.9) % Plt Count 373 272 (140-400) K/mcL Neutrophils # 12.8 H 10.7 H (1.6-8.9) K/mcL BMP 03/13/18 03/13/18 00:27 06:41 Sodium 138 141 Potassium 3.8 4.5 Chloride 108 H 108 H Carbon Dioxide 23 23 BUN 12 14 Creatinine 0.77 0.71 Glucose 110 H 104 Calcium 9.5 9.7 Consult Discharge Plan - Plan Referrals: NONE,PCP [Primary Care Provider] - (5) Leukocytosis Qualifiers: Leukocytosis type: unspecified Qualified Code(s): D72.829 - Elevated white blood cell count, unspecified (6) Altered mental status Qualifiers: Altered mental status type: unspecified Qualified Code(s): R41.82 - Altered mental status, unspecified
[2018-03-13] MEDS: Nitrofurantoin (BID) 100 MG CAPSULE PO SCH ×2 (10:02→16:57)
[2018-03-13] MEDS: *HR* LORazepam 1 MG TABLET PO SCH ×3 (10:02→22:00)
[2018-03-14 07:49] LABS: Basophils # 0.1 K/mcL (0.0-0.2); Basophils % 0.6 %; Eosinophils # 0.2 K/mcL (0.0-0.6); Eosinophils % 1.3 %; Hematocrit 40.7 % (35.3-44.9); Hemoglobin 14.4 g/dL (11.5-15.4); Immature Granulocytes % 1.4 % (0-4); Lymphocytes # 2.7 K/mcL (0.6-4.6); Lymphocytes % 16.5 %; Mean Corpuscular HGB Conc 35.4 g/dL (31.6-35.5); Mean Corpuscular Hemoglobin 31.7 pg (28.0-33.3); Mean Corpuscular Volume 89.6 fL (83.0-100.0); Mean Platelet Volume 9.8 fL (9.4-12.4); Monocytes # 0.7 K/mcL (0.0-1.3); Monocytes % 4.6 %; Neutrophils # 12.2 K/mcL (1.6-8.9); Platelet Count 319 K/mcL (140-400); Red Blood Count 4.54 M/mcL (3.82-4.97); Red Cell Distribution Width 13.3 % (11.5-14.5); Segmented Neutrophils % 75.6 %
[2018-03-14] MEDS: *HR* LORazepam 1 MG TABLET PO SCH ×3 (08:06→20:19)
[2018-03-14] MEDS: Nitrofurantoin (BID) 100 MG CAPSULE PO SCH ×2 (08:06→15:48)
[2018-03-14 08:32] LABS: BUN/Creatinine Ratio 15 (6-26); Blood Urea Nitrogen 11 mg/dL (6-20); Calcium 9.8 mg/dL (8.6-10.3); Carbon Dioxide 25 mEq/L (23-29); Chloride 106 mEq/L (98-107); Glucose 106 mg/dL (70-105); Osmolality,Calculated 288 (280-300); Potassium 4.2 mEq/L (3.5-5.1); Sodium 139 mEq/L (136-145); eGFR For Non-African Americans > 60 (> 60)
[2018-03-14] MEDS: Acetaminophen 325 MG TABLET PO PRN (11:56)
--- NOTE | 2018-03-14 12:20 | Internal Med Progress Note ---
Hospitalist Progress Note - Encounter Date of Encounter: 03/14/18 Time of Encounter: 12:17 - Subjective Interval History: Patient seen and examined at bedside today. She reports that she is feeling better today. Her behavior is improving and she is more verbal this morning. She is continuing to express intent for discharge to inpatient rehabilitation; discussed POC including potential for d/c tomorrow to inpatient rehab. - Exam Vitals: Temp Pulse Resp BP Pulse Ox 98.9 F 112 14 121/87 99 03/14/18 12:14 03/14/18 12:14 03/14/18 12:14 03/14/18 12:14 03/14/18 12:14 Exam: PHYSICAL EXAMINATION: GENERAL: The patient is a well-developed, well-nourished if female who appears to be withdrawn, she is alert and oriented to self and situation, oriented to place, participatory in self-care HEENT: Head is normocephalic and atraumatic. Extraocular muscles are intact. Pupils are equal, round, and reactive to light and accommodation. LUNGS: Clear to auscultation AP and L. HEART: Regular rate and rhythm, S1, S2, without murmur rubs or gallops. ABDOMEN: Soft, nontender, and nondistended. Positive bowel sounds. No hepatosplenomegaly was noted. NEUROLOGIC: Cranial nerves II through XII are grossly intact. PSYCHIATRIC: Flat affect, but denies suicidal or homicidal ideations admits to depression. Musculoskeletal: No Osler's nodes noted SKIN: No ulceration or induration present. Visible track mackenzie on bilateral upper and bilateral lower extremity, no Janeway's lesions - Assessment and Plan (1) Acute encephalopathy Current Visit: Yes Status: Acute (2) Selective mutism Current Visit: Yes Status: Acute (3) Hypokalemia Current Visit: Yes Status: Resolved (4) Substance use disorder Current Visit: Yes Status: Chronic (5) Leukocytosis Current Visit: Yes Status: Acute (6) Altered mental status Current Visit: Yes Status: Acute (7) UTI (urinary tract infection) Current Visit: Yes Status: Suspected (8) Hepatitis C antibody positive in blood Current Visit: Yes Status: Acute Assessment and Plan: per hx avoid hepatatoxins (9) DVT prophylaxis Current Visit: Yes Status: Acute - Summary of Assessment and Plan Summary of Assessment and Plan: Patient presents with altered mental status Etiology unclear however was found down for an unknown amount of time, consider anoxia as cause of encephalopathy. Additionally, patient has past history of TBI. Of note she is also suffering from polysubstance abuse and regularly uses opiates including IV heroin which could also be contributed to encephalopathic picture Patient was recently admitted to [place] following an overdose with concerns for anoxia. Since she has been acutely encephalopathic and has been suffering from mutism and inappropriate behavior including public masturbation since admission to [facility] Blood cultures completed a [place] and found to be negative Cultures completed [facility] negative HIV negative at [place] positive for hepatitis CT head completed a [place] found to be negative for acute intracranial abnormality TTE 03/08/18--LVEF 60%. Normal right ventricular structure and function. Mild mitral regurgitation. Mild tricuspid regurgitation. No pulmonary hypertension. Valvular vegetations are not observed on this study. With mental status does not improve consider lumbar puncture And psychiatry seeing in consultation throughout stay-to believe that the delirium is caused by substance abuse. 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 Mental status improving daily as well. Patient now participatory in self-care and more appropriate. Concerns for urinary tract infection as she has persistent leukocytosis. WBCs today 16.2. Has remained afebrile throughout stay and does not appear to be toxic. However, she is continuing to endorse dysuria and abdominal discomfort. Continue treating with Macrobid empirically at this time. Urine has been sent for culture cultures pending. DIAGNOSIS: 1-acute encephalopathy,-improving 2-selective mutism-resolved 7-skamwtryzbv-bltajrvp 4-substance abuse disorder-history of substance abuse disorder including opiates and IV heroin. 2 D/C to inpatient rehabilitation on Thursday 5-tyxrpzdtzjje-jghvhaik, consider UTI as cause 6-altered mental status-clinically, continuing to improve. Patient verbalizing appropriately today, confusion resolved 7-DVT prophylaxis-continuous heparin 8-suspect urinary tract infection - Time Spent with Patient Total time spent is greater than 50% in coordination of care (as documented) at patient's floor/unit and/or counseling patient: less than 15 minutes Plan of Care Discussed with: patient Internal Medicine: Result - Labs CBC & Chem 7: 03/14/18 07:27 03/14/18 07:27 Labs: Short CBC 03/14/18 Range/Units 07:27 WBC 16.2 H (4.3-11.1) K/mcL Hgb 14.4 D (11.5-15.4) g/dL Hct 40.7 (35.3-44.9) % Plt Count 319 (140-400) K/mcL Neutrophils # 12.2 H (1.6-8.9) K/mcL BMP 03/14/18 07:27 Sodium 139 Potassium 4.2 Chloride 106 Carbon Dioxide 25 BUN 11 Creatinine 0.73 Glucose 106 H Calcium 9.8 Consult Discharge Plan - Plan Referrals: NONE,PCP [Primary Care Provider] - (5) Leukocytosis Qualifiers: Leukocytosis type: unspecified Qualified Code(s): D72.829 - Elevated white blood cell count, unspecified (6) Altered mental status Qualifiers: Altered mental status type: unspecified Qualified Code(s): R41.82 - Altered mental status, unspecified (7) UTI (urinary tract infection) Qualifiers: Qualified Code(s): N39.0 - Urinary tract infection, site not specified; R31.9 - Hematuria, unspecified
[2018-03-15 06:18] LABS: Basophils # 0.1 K/mcL (0.0-0.2); Basophils % 0.6 %; Eosinophils # 0.2 K/mcL (0.0-0.6); Eosinophils % 2.2 %; Immature Granulocytes % 1.4 % (0-4); Lymphocytes # 1.9 K/mcL (0.6-4.6); Lymphocytes % 18.1 %; Mean Corpuscular HGB Conc 34.4 g/dL (31.6-35.5); Mean Corpuscular Hemoglobin 31.2 pg (28.0-33.3); Mean Corpuscular Volume 90.5 fL (83.0-100.0); Mean Platelet Volume 10.2 fL (9.4-12.4); Monocytes # 0.5 K/mcL (0.0-1.3); Monocytes % 4.9 %; Neutrophils # 7.7 K/mcL (1.6-8.9); Platelet Count 305 K/mcL (140-400); Red Blood Count 3.98 M/mcL (3.82-4.97); Red Cell Distribution Width 13.2 % (11.5-14.5); Segmented Neutrophils % 72.8 %
[2018-03-15 06:23] LABS: Hemoglobin 12.4 g/dL (11.5-15.4)
[2018-03-15 06:29] LABS: BUN/Creatinine Ratio 17 (6-26); Blood Urea Nitrogen 13 mg/dL (6-20); Calcium 9.7 mg/dL (8.6-10.3); Carbon Dioxide 24 mEq/L (23-29); Chloride 109 mEq/L (98-107); Glucose 97 mg/dL (70-105); Osmolality,Calculated 292 (280-300); Potassium 4.1 mEq/L (3.5-5.1); Sodium 141 mEq/L (136-145); eGFR For Non-African Americans > 60 (> 60)
[2018-03-15] MEDS: Nitrofurantoin (BID) 100 MG CAPSULE PO SCH ×2 (07:42→15:47)
[2018-03-15] MEDS: *HR* LORazepam 1 MG TABLET PO SCH ×3 (07:42→21:00)
--- NOTE | 2018-03-15 10:35 | Internal Med Progress Note ---
Hospitalist Progress Note - Encounter Date of Encounter: 03/15/18 Time of Encounter: 10:19 - Subjective Interval History: Patient seen and examined at bedside today. She reports that she is feeling better today. Her behavior is improving and she is more verbal this morning. She is continuing to express intent for discharge to inpatient rehabilitation - Exam Vitals: Temp Pulse Resp BP Pulse Ox 98.2 F 113 15 131/84 99 03/15/18 07:03 03/15/18 07:03 03/15/18 07:03 03/15/18 07:03 03/15/18 07:03 Exam: PHYSICAL EXAMINATION: GENERAL: The patient is a well-developed, well-nourished if female who appears to be withdrawn, she is alert and oriented to self and situation, oriented to place, participatory in self-care HEENT: Head is normocephalic and atraumatic. Extraocular muscles are intact. Pupils are equal, round, and reactive to light and accommodation. LUNGS: Clear to auscultation AP and L. HEART: RRR, S1, S2, without murmur rubs or gallops. ABDOMEN: Soft, nontender, and nondistended. Positive bowel sounds. No hepatosplenomegaly was noted. NEUROLOGIC: Cranial nerves II through XII are grossly intact. PSYCHIATRIC: Flat affect, but denies suicidal or homicidal ideations admits to depression. Musculoskeletal: No Osler's nodes noted SKIN: No ulceration or induration present. Visible track mackenzie on bilateral upper and bilateral lower extremity, no Janeway's lesions - Assessment and Plan (1) Acute encephalopathy Current Visit: Yes Status: Acute (2) Selective mutism Current Visit: Yes Status: Acute (3) Hypokalemia Current Visit: Yes Status: Resolved (4) Substance use disorder Current Visit: Yes Status: Chronic (5) Leukocytosis Current Visit: Yes Status: Acute (6) Altered mental status Current Visit: Yes Status: Acute (7) UTI (urinary tract infection) Current Visit: Yes Status: Suspected (8) Hepatitis C antibody positive in blood Current Visit: Yes Status: Acute (9) DVT prophylaxis Current Visit: Yes Status: Acute - Summary of Assessment and Plan Summary of Assessment and Plan: Patient presents with altered mental status Etiology unclear however was found down for an unknown amount of time, consider anoxia as cause of encephalopathy. Additionally, patient has past history of TBI. Of note she is also suffering from polysubstance abuse and regularly uses opiates including IV heroin which could also be contributed to encephalopathic picture Patient was recently admitted to [place] following an overdose with concerns for anoxia. Since she has been acutely encephalopathic and has been suffering from mutism and inappropriate behavior including public masturbation since admission to [facility] Blood cultures completed a [place] and found to be negative Cultures completed [facility] negative HIV negative at [place] positive for hepatitis CT head completed a [place] found to be negative for acute intracranial abnormality TTE 03/08/18--LVEF 60%. Normal right ventricular structure and function. Mild mitral regurgitation. Mild tricuspid regurgitation. No pulmonary hypertension. Valvular vegetations are not observed on this study. With mental status does not improve consider lumbar puncture And psychiatry seeing in consultation throughout stay-to believe that the delirium is caused by substance abuse. 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 Leukocytosis is resolved , WBC 10 today. Mental status also continuing to improve daily as well. Again used to be participatory in self-care and more appropriate than days prior to. She continues to remain afebrile and does not appear to be toxic. Dysuria and abdominal discomfort resolving. Continue treating with Macrobid empirically at this time. Urine cultures revealing no significant growth. DIAGNOSIS: 1-acute encephalopathy,-improving 2-selective mutism-resolved 5-ghmtyjwxqyw-mwytcqyr 4-substance abuse disorder-history of substance abuse disorder including opiates and IV heroin. 2 D/C to inpatient rehabilitation on Thursday 8-aryyxdzttwgb-aslwnfop 6-altered mental status-clinically, continuing to improve. Patient verbalizing appropriately today, confusion resolved 7-DVT prophylaxis-continuous heparin 8-suspect urinary tract infection-continue to treat with macrobid for 7 total days - Time Spent with Patient Total time spent is greater than 50% in coordination of care (as documented) at patient's floor/unit and/or counseling patient: less than 15 minutes Plan of Care Discussed with: patient Internal Medicine: Result - Labs CBC & Chem 7: 03/15/18 05:08 03/15/18 05:08 Labs: Short CBC 03/15/18 Range/Units 05:08 WBC 10.6 (4.3-11.1) K/mcL Hgb 12.4 D (11.5-15.4) g/dL Hct 36.0 (35.3-44.9) % Plt Count 305 (140-400) K/mcL Neutrophils # 7.7 (1.6-8.9) K/mcL BMP 03/15/18 05:08 Sodium 141 Potassium 4.1 Chloride 109 H Carbon Dioxide 24 BUN 13 Creatinine 0.78 Glucose 97 Calcium 9.7 Consult Discharge Plan - Plan Referrals: NONE,PCP [Primary Care Provider] - (5) Leukocytosis Qualifiers: Leukocytosis type: unspecified Qualified Code(s): D72.829 - Elevated white blood cell count, unspecified (6) Altered mental status Qualifiers: Altered mental status type: unspecified Qualified Code(s): R41.82 - Altered mental status, unspecified (7) UTI (urinary tract infection) Qualifiers: Qualified Code(s): N39.0 - Urinary tract infection, site not specified; R31.9 - Hematuria, unspecified
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
[2018-03-16 07:37] VITALS: BP 123/86
[2018-03-16] MEDS: *HR* LORazepam 1 MG TABLET PO SCH (08:08)
[2018-03-16] MEDS: Nitrofurantoin (BID) 100 MG CAPSULE PO SCH (08:08)
== END 2018-03-16 15:15 | disposition home or self-care (01) | DRG 812 ==
LOC: EMEROOARM 19:20 → 3BNU 19:20
PROVIDERS: ADMIT Internal Medicine; ATTEND Internal Medicine